=== PATIENT | female | born 1945 | race Caucasian/White ===

== ENCOUNTER 2018-08-27 09:10 | Emergency (ER) | payer MEDICARE, OTHER ==
[2018-08-27] MEDS ORDERED: Sodium Chloride 0.9% 1,000 ML IV ONE ×2 (09:13→11:44)
[2018-08-27] MEDS ORDERED: Sodium Chloride 0.9% 10 ML Syringe FLUSH PRN (09:13)
[2018-08-27] MEDS ORDERED: Ondansetron 4 MG/2 ML SDV IVPUSH ONE (09:13)
--- NOTE | 2018-08-27 09:15 | EDM.PDOC ---
<OrlinmahsaShan quevedo - Last Filed: 08/27/18 10:28> ED HPI GENERAL MEDICAL PROBLEM - General Chief Complaint: Gastrointestinal Problem Stated Complaint: VOMITING Time Seen by Provider: 08/27/18 09:15 Source of Information: Reports: Patient History Limitations: Reports: No Limitations - History of Present Illness INITIAL COMMENTS - FREE TEXT/NARRATIVE: 73 YO WF presents to ER complaining of nausea/vomiting and dizziness which began this am. Pt reports she woke around 5am and had a large bowel movement. Pt went back to bed and a few hours later she woke feeling nauseated and vomited. Pt reports she also had another large bowel movement followed by black emesis. Pt felt diaphoretic and dizzy prompting ER visit. 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 Pt reports she takes prednisone 5mg PO QD for her rheumatoid and has started taking (2) ASA 325mg PO QD for her arthritic pain. Pt denies abdominal pain and is currently without nausea. Pt states she feels dizzy with standing. Pt denies chest pain, shortness of breath, hemoptysis, or cough. Pt denies fever/chills. Onset: Today Onset Date: 08/27/18 Onset Time: 05:00 Duration: Improving, Waxing/Waning Location: Reports: Abdomen, Generalized Severity: Moderate Improves with: Reports: Rest Worsens with: Reports: Movement Associated Symptoms: Reports: Diaphoresis, Loss of Appetite, Malaise, Nausea/ Vomiting. Denies: Confusion, Chest Pain, Cough, cough w sputum, Fever/Chills, Headaches, Rash, Seizure, Shortness of Breath, Syncope - Related Data Allergies Allergy/AdvReac Type Severity Reaction Status Date / Time enoxaparin [From Lovenox] Allergy Hives Verified 08/27/18 10:47 Stqhjpk-Yqh-Gkw Reductase Allergy Other Verified 08/27/18 10:47 Inhibitor Seasonal Allergies Allergy Other Uncoded 08/27/18 10:47 Home Meds: Home Meds Albuterol [Proventil HFA] 2 puff INH Q4H PRN 01/16/18 [History] Albuterol [Proventil Neb Soln] 2.5 mg INH QID PRN 01/16/18 [History] Aspirin 325 mg PO DAILY 01/16/18 [History] Cetirizine [ZyrTEC] 10 mg PO DAILY 01/16/18 [History] Cyanocobalamin (Vitamin B-12) [B-12] 500 mcg PO Q48H 01/16/18 [History] Etanercept [Enbrel] 50 mg SQ WEEKLY 01/16/18 [History] Ezetimibe 10 mg PO DAILY 01/16/18 [History] Fluticasone/Salmeterol [Advair 250-50] 1 puff INH BID 01/16/18 [History] Folic Acid 1 mg PO DAILY 01/16/18 [History] Methotrexate 17.5 mg PO Q7D 01/16/18 [History] Metoprolol Succinate [Toprol XL] 25 mg PO DAILY 01/16/18 [History] Montelukast [Singulair] 10 mg PO DAILY 01/16/18 [History] Multivitamin [Daily Multiple Vitamin] 1 tab PO DAILY 01/16/18 [History] Nystatin [Nystatin Ointment] 1 applic TOP BID PRN 01/16/18 [History] [place]-3/DHA/Epa/Fish Oil [[place]-3 Fish Oil 1,000 MG Sfgl] 1,000 mg PO DAILY [History] Omeprazole 20 mg PO DAILY 01/16/18 [History] diphenhydrAMINE [Benadryl] 50 mg PO BEDTIME PRN 01/16/18 [History] predniSONE [Prednisone] 5 mg PO DAILY 01/16/18 [History] predniSONE [Prednisone] 10 mg PO DAILY PRN 01/16/18 [History] traMADol [Ultram] 50 mg PO BID PRN 01/16/18 [History] Acetaminophen/Diphenhydramine [Tylenol Pm Ex-Strength Caplet] 2 each PO BEDTIME PRN 08/27/18 [History] Cephalexin [Keflex] 250 mg PO DAILY 08/27/18 [History] Fluconazole [Diflucan] 150 mg PO DAILY 08/27/18 [History] Fluticasone Propionate [Flonase] 1 spray NS DAILY 08/27/18 [History] Past Medical History HEENT History: Reports: Cataract, Impaired Vision Cardiovascular History: Reports: High Cholesterol, Hypertension, SOB on Exertion Respiratory History: Reports: Asthma Gastrointestinal History: Reports: GERD, Hiatal Hernia Genitourinary History: Reports: Renal Calculus [employer]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 , Musculoskeletal History: Reports: Back Pain, Chronic, Osteoarthritis, RA Neurological History: Reports: Headaches, Chronic Hematologic History: Reports: Blood Transfusion(s) - Infectious Disease History Infectious Disease History: Reports: Chicken Pox, Measles, Shingles - Past Surgical History HEENT Surgical History: Reports: Cataract Surgery Cardiovascular Surgical History: Reports: None Respiratory Surgical History: Reports: None GI Surgical History: Reports: Appendectomy, Colonoscopy, EGD Female Surgical History: Reports: Cystoscopy, Hysterectomy, Lithotripsy/ESWL Neurological Surgical History: Reports: None Musculoskeletal Surgical History: Reports: Arthroscopic Knee, Knee Replacement Social & Family History - Caffeine Use Caffeine Use: Reports: Coffee, Soda, Tea ED ROS GENERAL - Review of Systems Review Of Systems: See Below Constitutional: Reports: Malaise, Weakness, Decreased Appetite, Weight Loss HEENT: Reports: No Symptoms Respiratory: Reports: No Symptoms Cardiovascular: Reports: No Symptoms Endocrine: Reports: No Symptoms GI/Abdominal: Reports: Black Stool, Diarrhea, Nausea, Vomiting. Denies: Abdominal Pain : Reports: No Symptoms Musculoskeletal: Reports: No Symptoms Skin: Reports: No Symptoms Neurological: Reports: Dizziness Psychiatric: Reports: No Symptoms Hematologic/Lymphatic: Reports: No Symptoms Immunologic: Reports: No Symptoms ED EXAM, GI/ABD - Physical Exam Exam: See Below Exam Limited By: No Limitations General Appearance: Alert, WD/WN, No Apparent Distress Eyes: Bilateral: EOMI Throat/Mouth: Normal Inspection, Normal Lips, Normal Teeth, Normal Gums, Normal Oropharynx, Normal Voice, No Airway Compromise Head: Atraumatic, Normocephalic Neck: Normal Inspection, Supple, Non-Tender, Full Range of Motion Respiratory/Chest: No Respiratory Distress, Lungs Clear, Normal Breath Sounds, No Accessory Muscle Use, Chest Non-Tender Cardiovascular: Normal Peripheral Pulses, Regular Rate, Rhythm, No Edema, No Gallop, No JVD, No Murmur, No Rub GI/Abdominal Exam: Normal Bowel Sounds, Soft, Non-Tender, No Organomegaly, No Distention, No Abnormal Bruit, No Mass, Pelvis Stable Rectal (Female) Exam: Normal Exam, Normal Rectal Tone, Heme + Stool Back Exam: Normal Inspection, Full Range of Motion, NT Extremities: Normal Inspection, Normal Range of Motion, Non-Tender, Normal Capillary Refill, No Pedal Edema Neurological: Alert, Oriented, CN II-XII Intact, Normal Cognition, Normal Gait, Normal Reflexes, No Motor/Sensory Deficits Psychiatric: Normal Affect, Normal Mood Skin Exam: Warm, Dry, Intact, Normal Color, No Rash Lymphatic: No Adenopathy EKG INTERPRETATION EKG Date: 08/27/18 Time: 09:40 Rhythm: NSR Rate (Beats/Min): 72 [place]: Normal P-Wave: Present QRS: Normal ST-T: Normal QT: Normal Comparison: NA - No Prior EKG Course - Orders/Labs/Meds Orders: Active Orders 24 hr Category Date Time Status EKG Documentation Completion [RC] ASDIRECTED Care 08/27/18 09:14 Active Peripheral IV Care [RC] . DIRECTED Care 08/27/18 09:14 Active TYPE AND SCREEN [BBK] Stat Lab 08/27/18 09:55 Received Sodium Chloride 0.9% [Saline Flush] Med 08/27/18 09:13 Active 10 ml FLUSH Q8HR PRN Peripheral IV Insertion Adult [OM.PC] Routine Oth 08/27/18 09:13 Ordered EKG 12 Lead [EK] Routine Ther 08/27/18 09:14 Ordered Medication Orders Sodium Chloride (Saline Flush) 10 ml FLUSH Q8HR PRN PRN Reason: keep vein open Labs: Laboratory Tests 08/27/18 08/27/18 Range/Units 09:55 09:55 WBC 11.09 H (5.00-10.00) 10^3/uL RBC 3.13 L (3.80-5.50) 10^6/uL Hgb 9.7 L (12.0-16.0) g/dL Hct 30.3 L (37.0-47.0) % MCV 96.8 H (82.0-92.0) fL MCH 31.0 (27.0-31.0) pg MCHC 32.0 (32.0-36.0) g/dL RDW 15.7 H (11.5-14.5) % Plt Count 295 (150-400) 10^3/uL MPV 9.8 (7.4-10.4) fL Immature Gran % (Auto) 0.3 (0.0-5.0) % Neut % (Auto) 52.2 (50.0-70.0) % Lymph % (Auto) 31.6 (20.0-40.0) % [place] % (Auto) 13.2 H (2.0-8.0) % Eos % (Auto) 2.3 (1.0-3.0) % Baso % (Auto) 0.4 (0.0-1.0) % Immature Gran # (Auto) 0.03 (0.00-0.50) 10^3/uL Neut # (Auto) 5.80 (2.50-7.00) 10^3/uL Lymph # (Auto) 3.50 (1.00-4.00) 10^3/uL [place] # (Auto) 1.46 H (0.10-0.80) 10^3/uL Eos # (Auto) 0.26 (0.10-0.30) 10^3/uL Baso # (Auto) 0.04 (0.00-0.10) 10^3/uL Sodium 145 (136-145) mmol/L Potassium 3.9 (3.3-5.3) mmol/L Chloride 110 (98-115) mmol/L Carbon Dioxide 25.6 (21.0-32.0) mmol/L Anion Gap 13.3 (5-15) mmol/L BUN 44 H (6-25) mg/dL Creatinine 0.96 (0.51-1.17) mg/dL Est Cr Clr Drug Dosing TNP Estimated GFR (MDRD) 57 mL/min Glucose 106 H (75 - 99) mg/dL Calcium 8.2 L (8.7-10.3) mg/dL Total Bilirubin 0.2 (0.2-1.0) mg/dL AST 23 (15-37) U/L ALT 34 (12-78) U/L Alkaline Phosphatase 34 L (46-116) IU/L Total Protein 5.6 L (6.4-8.2) g/dL Albumin 2.77 L (3.00-4.80) g/dL Lipase 133 (73-393) U/L Meds: Medications Generic Name Dose Route Start Last Admin Trade Name Freq PRN Reason Stop Dose Admin Sodium Chloride 10 ml 08/27/18 09:13 Saline Flush FLUSH Q8HR PRN keep vein open Discontinued Medications Generic Name Dose Route Start Last Admin Trade Name Freq PRN Reason Stop Dose Admin Sodium Chloride 1,000 mls @ 999 mls/hr 08/27/18 09:13 Normal Saline IV 08/27/18 10:13 .BOLUS ONE Ondansetron HCl 4 mg 08/27/18 09:13 Zofran IVPUSH 08/27/18 09:14 ONETIME ONE - Radiology Interpretation Free Text/Narrative:: CXR- NAD Departure - Departure Disposition: DC/Tfer to Acute Hospital 02 Clinical Impression: Acute GI bleeding - Discharge Information Referrals: Oz Dunaway MD [Primary Care Provider] - Forms: ED Department Discharge <Mendez Castro - Last Filed: 08/27/18 14:03> Course - Re-Assessments/Exams Free Text/Narrative Re-Assessment/Exam: 08/27/18 11:37 I took over patient care from Shan after discussing her case. I reviewed details with the patient; she says for the past 4 days she had mildly darker stools but she had been eating lots of dark cherries and some black licorice so she thought it was due to that until this morning when she had black tarry stools twice and black emesis. Her Hg is 9.7 and I discussed with Dr. Beverley Alvarado who is in-house for rounds. We compared past labs and patient has never been anemic before with last Hg about 14.5 two weeks ago. She says an emergent endoscopy isn't available here now and advises calling [facility]. 08/27/18 11:57 Hemoccult is positive from stool specimen. 08/27/18 12:20 Hospitalist at [facility] in [place] accepted for transfer and we will wait for their call with room. 08/27/18 14:02 They called with room in [facility] and patient is stable at transfer. Departure - Departure Time of Disposition: 14:02 Condition: Good
--- NOTE | 2018-08-27 09:59 | CR ---
[id number] RAD/RAD Chest PA And Lateral EXAM: RAD Chest PA And Lateral INDICATION: VOMITING. COMPARISON: CT from 2010 DISCUSSION: Cardiomediastinal silhouette is normal in size and contour. No infiltrate, effusion, pneumothorax, or edema. Large hiatus hernia. IMPRESSION: No acute cardiopulmonary findings. Large hiatus hernia. Zhao Zuniga MD 08/27/18 [id number] Thank you for allowing us to participate in the care of your patient.
[2018-08-27 10:33] LABS: ANION GAP 13.3 mmol/L (5-15); CHLORIDE,CL 110 mmol/L (98-115); SODIUM,NA 145 mmol/L (136-145)
[2018-08-27] MEDS ORDERED: Nitroglycerin 0.4 MG Tab.SL SL PRN (12:15)
== END 2018-08-27 14:15 ==
LOC: KA.ED 09:10
DX: K92.2 Gastrointestinal hemorrhage, unspecified (principal); I10 Essential (primary) hypertension; E78.00 Pure hypercholesterolemia, unspecified; J45.909 Unspecified asthma, uncomplicated; K21.9 Gastro-esophageal reflux disease without esophagitis; Z79.82 Long term (current) use of aspirin; Z79.899 Other long term (current) drug therapy; Z88.8 Allergy status to other drugs, medicaments and biological substances; Z91.09 Other allergy status, other than to drugs and biological substances
CPT/HCPCS: 36415; 71046; 80053; 81001; 82272; 83690; 85025; 86850; 86900; 86901; 87086; 93005; 96361; 96374; 99285; J2405; J7030; 99284

== ENCOUNTER 2020-09-11 13:56 | Inpatient (IN) | payer MEDICARE, OTHER ==
[2020-09-11] MEDS ORDERED: Sodium Chloride 0.9% 1,000 ML IV ONE (15:54)
--- NOTE | 2020-09-11 15:58 | EDM.PDOC ---
ED HPI GENERAL MEDICAL PROBLEM - General Chief Complaint: General Stated Complaint: DIZZINESS Time Seen by Provider: 09/11/20 14:32 Source of Information: Reports: Patient, Family (dtr) History Limitations: Reports: No Limitations - History of Present Illness INITIAL COMMENTS - FREE TEXT/NARRATIVE: Patient presents with two falls and several near-falls, recently. She says they happen when she stands up and begins walking. The first time was about a month ago after her back surgery and hospitalization at [facility]; she says the cage/hardware from the surgery shifted from the fall at that time. The second fall was 2 days ago and she wonders if it moved again. She also hit her right hip against a cupboard on the way down and has some pain and bruising at the lateral hip but not anterior. She has had low blood pressure recently and has had all of antihypertensives stopped 2.5 weeks ago. She drinks at least 40 oz of water, as well as some juice, coffee and soda most days. She denies any diarrhea or vomiting. Lower Back Pain Score (Numeric/FACES): 8 - Related Data Allergies Allergy/AdvReac Type Severity Reaction Status Date / Time enoxaparin [From Lovenox] Allergy Hives Verified 09/11/20 14:08 NSAIDS (Non-Steroidal Allergy Other Verified 09/11/20 14:08 Anti-Inflamma Rhctvnz-Dbp-Dcm Reductase Allergy Other Verified 09/11/20 14:08 Inhibitor Seasonal Allergies Allergy Other Uncoded 09/11/20 14:08 Home Meds: Home Meds Albuterol [Proventil HFA] 2 puff INH Q4H PRN 01/16/18 [History] Cetirizine [ZyrTEC] 10 mg PO DAILY 01/16/18 [History] Fluticasone/Salmeterol [Advair 250-50] 1 puff INH BID 01/16/18 [History] Montelukast [Singulair] 10 mg PO DAILY 01/16/18 [History] Nystatin [Nystatin Ointment] 1 applic TOP BID PRN 01/16/18 [History] Omeprazole 20 mg PO DAILY 01/16/18 [History] Fluticasone Propionate [Flonase] 1 spray NS DAILY PRN 08/27/18 [History] Acyclovir [Zovirax] 800 mg PO TID PRN 10/21/19 [History] Alum Hydroxide/Mag Carbonate [Gaviscon] 15 ml PO DAILY PRN 10/21/19 [History] Cyclobenzaprine [Flexeril] 5 mg PO TID PRN 10/21/19 [History] Rivaroxaban [Xarelto] 20 mg PO DAILY 10/21/19 [History] DULoxetine HCl [Cymbalta] 60 mg PO DAILY 05/24/20 [History] Pramipexole [Mirapex] 0.25 mg PO BEDTIME 05/24/20 [History] Acetaminophen [Tylenol] 650 mg PO Q6H PRN 09/11/20 [History] Acetaminophen/Diphenhydramine [Tylenol Pm Ex-Strength Caplet] 2 tab PO BEDTIME PRN 09/11/20 [History] Docusate Sodium 100 mg PO BEDTIME 09/11/20 [History] Gabapentin [Neurontin] 300 mg PO TID 09/11/20 [History] Hydrocodone/Acetaminophen [HYDROcodone-Acetaminophen 5-325 MG] 1 - 2 tab PO Q6H PRN 09/11/20 [History] oxyCODONE 5 mg PO Q6H PRN 09/11/20 [History] Past Medical History HEENT History: Reports: Cataract, Impaired Vision Cardiovascular History: Reports: Blood Clots/VTE/DVT, High Cholesterol, Hypertension, SOB on Exertion Respiratory History: Reports: Asthma, PE Gastrointestinal History: Reports: GERD, Hiatal Hernia Genitourinary History: Reports: Renal Calculus [employer]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 , Musculoskeletal History: Reports: Back Pain, Chronic, Osteoarthritis, Osteoporosis, RA Neurological History: Reports: Headaches, Chronic Endocrine/Metabolic History: Reports: Osteoporosis Hematologic History: Reports: Blood Transfusion(s) Immunologic History: Reports: Immunosuppression - Infectious Disease History Infectious Disease History: Reports: Chicken Pox, Measles, Shingles - Past Surgical History HEENT Surgical History: Reports: Cataract Surgery Cardiovascular Surgical History: Reports: None Respiratory Surgical History: Reports: None GI Surgical History: Reports: Appendectomy, Colonoscopy, EGD Female Surgical History: Reports: Cystoscopy, Hysterectomy, Lithotripsy/ESWL Neurological Surgical History: Reports: None Musculoskeletal Surgical History: Reports: Arthroscopic Knee, Knee Replacement Social & Family History - Family History Family Medical History: No Pertinent Family History - Caffeine Use Caffeine Use: Reports: Coffee ED ROS GENERAL - Review of Systems Review Of Systems: See Below Constitutional: Denies: Fever, Chills, Malaise, Weakness HEENT: Denies: Ear Pain, Throat Pain, Vision Change Respiratory: Denies: Shortness of Breath, Cough Cardiovascular: Reports: Blood Pressure Problem, Lightheadedness, Syncope. Denies: Chest Pain GI/Abdominal: Reports: Constipation. Denies: Abdominal Pain, Diarrhea, Nausea, Vomiting : Denies: Dysuria (was recently treated for UTI and has kidney stones) Musculoskeletal: Reports: Back Pain. Denies: Neck Pain, Shoulder Pain, Arm Pain, Leg Pain (except lateral R hip), Foot Pain Skin: Denies: Cyanosis, Jaundice, Mottled, Pallor, Diaphoresis Neurological: Reports: Syncope. Denies: Confusion, Headache, Numbness, Seizure, Trouble Speaking Psychiatric: Denies: Agitation, Anxiety, Confusion ED EXAM, GENERAL - Physical Exam Exam: See Below Exam Limited By: No Limitations General Appearance: Alert, WD/WN, No Apparent Distress Eye Exam: Bilateral Eye: EOMI, Normal Inspection, PERRL Ears: Normal External Exam, Hearing Grossly Normal Nose: Normal Inspection, No Blood Throat/Mouth: Normal Inspection, Normal Lips, Normal Voice, No Airway Compromise Head: Atraumatic, Normocephalic Neck: Normal Inspection, Full Range of Motion Respiratory/Chest: No Respiratory Distress, Lungs Clear, Normal Breath Sounds Cardiovascular: Regular Rate, Rhythm, No Murmur GI/Abdominal: Soft, Non-Tender, No Organomegaly, No Distention Back Exam: Other (There are recent, nicely healing surgical incisions on either side of lumbar spine.). No: Paraspinal Tenderness, Vertebral Tenderness Extremities: Normal Inspection, Normal Range of Motion, Non-Tender, No Pedal Edema Neurological: Alert, Oriented, Normal Cognition, No Motor/Sensory Deficits Psychiatric: Normal Affect, Normal Mood Skin Exam: Warm, Dry, Intact, Normal Color, No Rash Course - Vital Signs Last Recorded V/S: Last Vital Signs Temp 97.2 F 09/11/20 14:08 Pulse 83 09/11/20 14:08 Resp 18 09/11/20 14:08 BP 147/89 H 09/11/20 14:08 Pulse Ox 98 09/11/20 14:08 - Re-Assessments/Exams Free Text/Narrative Re-Assessment/Exam: 09/11/20 16:10 Orthostatic pressures show a significant drop with sitting and standing. I discussed findings with Dr. Madden who accepts for admission for monitor and workup. EKG shows NSR. 09/11/20 17:01 Labs and xray okay. Discussed findings and plan with patient. Stable at admission. Departure - Departure Time of Disposition: 16:58 Disposition: Admitted As Inpatient 66 Condition: Good Clinical Impression: Orthostatic hypotension, History of recent fall - Discharge Information Referrals: Isabella Sanchez MD [Primary Care Provider] - Sepsis Event Note (ED) - Evaluation Sepsis Screening Result: No Definite Risk - Focused Exam Vital Signs: Vital Signs Temp Pulse Resp BP Pulse Ox 09/11/20 14:08 97.2 F 83 18 147/89 H 98
--- NOTE | 2020-09-11 16:34 | CR ---
[id number] RAD/RAD Lumbar Spine 2-3V Exam: RAD Lumbar Spine 2-3V Indication:PAIN, FALL. Comparison: No prior imaging for comparison. Discussion/Impression: Extensive changes of hardware fusion at L3-S1. Hardware appears radiographically intact. No prior postoperative imaging available for comparison No evidence of an acute fracture or compression deformity. Zhao Zuniga MD 09/11/20 [id number] Thank you for allowing us to participate in the care of your patient.
[2020-09-11 16:53] LABS: ANION GAP 15.7 mmol/L (5-15)
[2020-09-11] MEDS ORDERED: Albuterol 8 GM Inhaler INH PRN (20:02)
[2020-09-11] MEDS ORDERED: Acyclovir 400 MG Tab PO PRN (20:02)
[2020-09-11] MEDS ORDERED: ALUMINUM HYDROXIDE PO PRN (20:04)
[2020-09-11] MEDS ORDERED: MAGNESIUM CARBONATE PO PRN (20:04)
[2020-09-11] MEDS ORDERED: Nystatin Ointment 15 GM Tube TOP PRN (20:08)
[2020-09-11] MEDS ORDERED: Acetaminophen/HYDROcodone 325-5 MG Tab PO PRN (20:12)
[2020-09-11] MEDS ORDERED: oxyCODONE 5 MG Tab PO PRN (20:58)
[2020-09-11] MEDS ORDERED: Fluticasone Propionate Nasal Spray 16 GM Bottle NASBOTH SCH (21:00)
[2020-09-11] MEDS ORDERED: Formoterol/Mometasone 200-5 MCG 8.8 GM Inhaler IH SCH (21:00)
[2020-09-11] MEDS: Pramipexole 0.125 MG Tab PO SCH (21:38)
[2020-09-11] MEDS: Docusate Sodium 100 MG Cap PO SCH (21:39)
[2020-09-11] MEDS: Gabapentin 300 MG Cap PO SCH (21:39)
[2020-09-11] MEDS: Melatonin 3 MG Tab PO PRN (21:39)
[2020-09-11] MEDS: Cyclobenzaprine 10 MG Tab PO PRN (21:46)
[2020-09-11] MEDS: Acetaminophen 325 MG Tab PO PRN (21:47)
[2020-09-11] MEDS ORDERED: Albuterol 8 GM Inhaler **OWN MED INH PRN (22:10)
[2020-09-11] MEDS: ADVAIR INH SCH (22:35)
[2020-09-11] MEDS: Fluticasone Propionate Nasal Spray 16 GM Bottle **OWN MED NASBOTH SCH (22:36)
[2020-09-12] MEDS: Omeprazole 20 MG Cap.CR PO SCH ×2 (06:13→06:32)
[2020-09-12] MEDS: Gabapentin 300 MG Cap PO SCH ×3 (08:51→20:03)
[2020-09-12] MEDS: DULoxetine 30 MG Cap PO SCH (08:51)
[2020-09-12] MEDS: Montelukast 10 MG Tab PO SCH (08:51)
[2020-09-12] MEDS: Rivaroxaban 10 MG Tab PO SCH (08:51)
[2020-09-12] MEDS: Cetirizine 10 MG Tab PO SCH (08:53)
[2020-09-12] MEDS: ADVAIR INH SCH ×2 (08:57→20:05)
--- NOTE | 2020-09-12 10:42 | PCM.HP.2 ---
H&P History of Present Illness - General Date of Service: 09/12/20 Admit Problem/Dx: Admission Diagnosis/Problem Admission Diagnosis/Problem Orthostatic hypotension Lower Back Pain Score (Numeric/FACES): 0 - Related Data Allergies/Adverse Reactions: Allergies Allergy/AdvReac Type Severity Reaction Status Date / Time enoxaparin [From Lovenox] Allergy Hives Verified 09/11/20 14:08 NSAIDS (Non-Steroidal Allergy Other Verified 09/11/20 14:08 Anti-Inflamma Kzziabz-Ltk-Hhw Reductase Allergy Other Verified 09/11/20 14:08 Inhibitor Seasonal Allergies Allergy Other Uncoded 09/11/20 14:08 Home Medications: Home Meds Albuterol [Proventil HFA] 2 puff INH Q4H PRN 01/16/18 [History] Cetirizine [ZyrTEC] 10 mg PO DAILY 01/16/18 [History] Fluticasone/Salmeterol [Advair 250-50] 1 puff INH BID 01/16/18 [History] Montelukast [Singulair] 10 mg PO DAILY 01/16/18 [History] Nystatin [Nystatin Ointment] 1 applic TOP BID PRN 01/16/18 [History] Omeprazole 20 mg PO ACBREAKFAST 01/16/18 [History] Fluticasone Propionate [Flonase] 1 spray NS BEDTIME 08/27/18 [History] Acyclovir [Zovirax] 800 mg PO TID PRN 10/21/19 [History] Alum Hydroxide/Mag Carbonate [Gaviscon] 15 ml PO DAILY PRN 10/21/19 [History] Cyclobenzaprine [Flexeril] 5 mg PO TID PRN 10/21/19 [History] Rivaroxaban [Xarelto] 20 mg PO DAILY 10/21/19 [History] DULoxetine HCl [Cymbalta] 60 mg PO DAILY 05/24/20 [History] Pramipexole [Mirapex] 0.25 mg PO BEDTIME 05/24/20 [History] Acetaminophen [Tylenol] 650 mg PO Q6H PRN 09/11/20 [History] Acetaminophen/Diphenhydramine [Tylenol Pm Ex-Strength Caplet] 2 tab PO BEDTIME PRN 09/11/20 [History] Docusate Sodium 100 mg PO BEDTIME 09/11/20 [History] Gabapentin [Neurontin] 300 mg PO TID 09/11/20 [History] Hydrocodone/Acetaminophen [HYDROcodone-Acetaminophen 5-325 MG] 1 - 2 tab PO Q6H PRN 09/11/20 [History] oxyCODONE 5 mg PO Q6H PRN 09/11/20 [History] Midodrine 10 mg PO BID #60 tablet 09/14/20 [Rx] Past Medical History HEENT History: Reports: Cataract, Impaired Vision Cardiovascular History: Reports: Blood Clots/VTE/DVT, Hypertension, SOB on Exertion Respiratory History: Reports: Asthma, PE Gastrointestinal History: Reports: GERD, Hiatal Hernia Genitourinary History: Reports: Renal Calculus HEALTH PSYCHOLOGIST History: Reports: Ectopic , Musculoskeletal History: Reports: Back Pain, Chronic, Osteoarthritis, Osteoporosis, RA Neurological History: Reports: Headaches, Chronic Endocrine/Metabolic History: Reports: Hypoparathyroidism, Osteoporosis Hematologic History: Reports: Blood Transfusion(s) Immunologic History: Reports: Immunosuppression - Infectious Disease History Infectious Disease History: Reports: Chicken Pox, Measles, Novel Coronavirus, Shingles - Past Surgical History Head Surgeries/Procedures: Reports: None HEENT Surgical History: Reports: Cataract Surgery Cardiovascular Surgical History: Reports: None Respiratory Surgical History: Reports: None GI Surgical History: Reports: Appendectomy, Colonoscopy, EGD Female Surgical History: Reports: Cystoscopy, Hysterectomy, Lithotripsy/ESWL Endocrine Surgical History: Reports: Parathyroidectomy Neurological Surgical History: Reports: None Musculoskeletal Surgical History: Reports: Arthroscopic Knee, Knee Replacement Dermatological Surgical History: Reports: None Social & Family History - Family History Family Medical History: No Pertinent Family History - Tobacco Use Tobacco Use Status *Q: Never Tobacco User - Caffeine Use Caffeine Use: Reports: Coffee, Soda - Recreational Drug Use Recreational Drug Use: No H&P Review of Systems - Review of Systems: Review Of Systems: See Below General: Reports: Decreased Appetite (states related to hiatal hernia) HEENT: Reports: Other (dry eyes due to RA) Pulmonary: Reports: No Symptoms Cardiovascular: Reports: Lightheadedness. Denies: Chest Pain, Palpitations, Edema Gastrointestinal: Reports: Decreased Appetite Genitourinary: Reports: No Symptoms Musculoskeletal: Reports: Other (generalized RA pain) Skin: Reports: No Symptoms Psychiatric: Reports: No Symptoms Neurological: Reports: No Symptoms Hematologic/Lymphatic: Reports: Easy Bleeding, Easy Bruising (on xarelto) Immunologic: Reports: No Symptoms Exam - Exam Exam: See Below - Vital Signs Vital Signs: Last Vital Signs Temp 98.8 F 09/12/20 06:35 Pulse 73 09/12/20 06:35 Resp 16 09/12/20 06:35 BP 145/63 H 09/12/20 06:35 Pulse Ox 94 L 09/12/20 06:35 Orthostatic Blood Pressure [ 88/50 Standing] Orthostatic Blood Pressure [ 126/70 Sitting] Orthostatic Blood Pressure [ 141/76 Supine] Weight: 139 lb 8 oz - Exam Quality Assessment: No: Supplemental Oxygen General: Alert, Oriented, Cooperative HEENT: Conjunctiva Clear, EACs Clear, Mucosa Moist & [place] Neck: Supple, Trachea Midline. No: Carotid Bruit Lungs: Clear to Auscultation, Normal Respiratory Effort. No: Crackles, Rales, Wheezing Cardiovascular: Regular Rate, Regular Rhythm GI/Abdominal Exam: Normal Bowel Sounds, Soft, Non-Tender, No Distention (Female) Exam: Deferred Rectal (Female) Exam: Deferred Back Exam: Normal Inspection Extremities: Normal Inspection, Normal Range of Motion, Non-Tender, No Pedal Edema, Normal Capillary Refill Peripheral Pulses: 2+: Dorsalis Pedis (L), Dorsalis Pedis (R) Skin: Warm, Dry, Intact Neurological: Normal Speech Neuro Extensive - Mental Status: Alert, Oriented x3, Normal Mood/Affect, Normal Cognition, Memory Intact Psychiatric: Alert, Normal Affect, Normal Mood - Patient Data Lab Results Last 24 hrs: Laboratory Results - last 24 hr 09/11/20 09/11/20 09/11/20 Range/Units 16:26 16:26 16:30 WBC 9.84 (5.00-10.00) 10^3/uL RBC 4.09 (3.80-5.50) 10^6/uL Hgb 11.0 L (12.0-16.0) g/dL Hct 35.9 L (37.0-47.0) % MCV 87.8 D (82.0-92.0) fL MCH 26.9 L (27.0-31.0) pg MCHC 30.6 L (32.0-36.0) g/dL RDW 14.4 (11.5-14.5) % Plt Count 416 H D (150-400) 10^3/uL MPV 9.1 (7.4-10.4) fL Immature Gran % (Auto) 0.2 (0.0-5.0) % Neut % (Auto) 72.0 H (50.0-70.0) % Lymph % (Auto) 16.1 L (20.0-40.0) % [place] % (Auto) 9.3 H (2.0-8.0) % Eos % (Auto) 2.1 (1.0-3.0) % Baso % (Auto) 0.3 (0.0-1.0) % Neut # (Auto) 7.08 H (2.50-7.00) 10^3/uL Lymph # (Auto) 1.58 (1.00-4.00) 10^3/uL [place] # (Auto) 0.92 H (0.10-0.80) 10^3/uL Eos # (Auto) 0.21 (0.10-0.30) 10^3/uL Baso # (Auto) 0.03 (0.00-0.10) 10^3/uL Immature Gran # (Auto) 0.02 (0.00-0.50) 10^3/uL Sodium 137 (136-145) mmol/L Potassium 3.9 (3.5-5.1) mmol/L Chloride 101 (98-107) mmol/L Carbon Dioxide 24.2 (21.0-32.0) mmol/L Anion Gap 15.7 H (5-15) mmol/L BUN 18 (7-18) mg/dL Creatinine 0.92 (0.51-1.17) mg/dL Est Cr Clr Drug Dosing 39.87 mL/min Estimated GFR (MDRD) 60 mL/min Glucose 97 (70-140) mg/dL Calcium 8.2 L (8.7-10.3) mg/dL Total Bilirubin 0.2 (0.2-1.0) mg/dL AST 22 (15-37) U/L ALT 16 (14-63) U/L Alkaline Phosphatase 130 H (46-116) U/L Total Protein 6.2 L (6.4-8.2) g/dL Albumin 2.18 L (3.40-5.00) g/dL SARS CoV-2 RNA Rapid [place] Negative (NEGATIVE) 09/12/20 Range/Units 10:20 WBC 8.62 (5.00-10.00) 10^3/uL RBC 3.75 L (3.80-5.50) 10^6/uL Hgb 10.3 L (12.0-16.0) g/dL Hct 33.1 L (37.0-47.0) % MCV 88.3 (82.0-92.0) fL MCH 27.5 (27.0-31.0) pg MCHC 31.1 L (32.0-36.0) g/dL RDW 14.6 H (11.5-14.5) % Plt Count 387 (150-400) 10^3/uL MPV 9.2 (7.4-10.4) fL Immature Gran % (Auto) (0.0-5.0) % Neut % (Auto) (50.0-70.0) % Lymph % (Auto) (20.0-40.0) % [place] % (Auto) (2.0-8.0) % Eos % (Auto) (1.0-3.0) % Baso % (Auto) (0.0-1.0) % Neut # (Auto) (2.50-7.00) 10^3/uL Lymph # (Auto) (1.00-4.00) 10^3/uL [place] # (Auto) (0.10-0.80) 10^3/uL Eos # (Auto) (0.10-0.30) 10^3/uL Baso # (Auto) (0.00-0.10) 10^3/uL Immature Gran # (Auto) (0.00-0.50) 10^3/uL Sodium (136-145) mmol/L Potassium (3.5-5.1) mmol/L Chloride (98-107) mmol/L Carbon Dioxide (21.0-32.0) mmol/L Anion Gap (5-15) mmol/L BUN (7-18) mg/dL Creatinine (0.51-1.17) mg/dL Est Cr Clr Drug Dosing mL/min Estimated GFR (MDRD) mL/min Glucose (70-140) mg/dL Calcium (8.7-10.3) mg/dL Total Bilirubin (0.2-1.0) mg/dL AST (15-37) U/L ALT (14-63) U/L Alkaline Phosphatase (46-116) U/L Total Protein (6.4-8.2) g/dL Albumin (3.40-5.00) g/dL SARS CoV-2 RNA Rapid [place]INTER (NEGATIVE) Result Diagrams: 09/13/20 07:35 09/13/20 07:35 Sepsis Event Note - Evaluation Sepsis Screening Result: No Definite Risk - Focused Exam Vital Signs: Vital Signs Temp Pulse Resp BP Pulse Ox 09/12/20 06:35 98.8 F 73 16 145/63 H 94 L 09/12/20 02:11 97.8 F 80 16 150/65 H 97 Problem List Initiated/Reviewed/Updated: Yes Orders Last 24hrs: Active Orders 24 hr Category Date Time Status Patient Status [ADT] Routine ADT 09/11/20 17:00 Active EKG Documentation Completion [RC] ASDIRECTED Care 09/11/20 15:57 Active Orthostatic Vital Signs [RC] ASDIRECTED Care 09/12/20 09:24 Active 2 Gram Sodium Diet [DIET] Diet 09/12/20 Breakfast Active CMP [COMPREHENSIVE METABOLIC PN,CMP] [CHEM] Routine Lab 09/12/20 10:20 Received Acetaminophen [TylenoL] Med 09/11/20 20:01 Active 650 mg PO Q6H PRN Acyclovir [Zovirax] Med 09/11/20 20:02 Active 800 mg PO TID PRN Albuterol [Ventolin HFA] Med 09/11/20 22:10 Active 0 gm INH Q4H PRN Cetirizine [ZyrTEC] Med 09/12/20 09:00 Active 10 mg PO DAILY Cyclobenzaprine [Flexeril] Med 09/11/20 20:04 Active 5 mg PO TID PRN DULoxetine [Cymbalta] Med 09/12/20 09:00 Active 60 mg PO DAILY Docusate Sodium [Colace] Med 09/11/20 21:00 Active 100 mg PO BEDTIME Fluticasone Propionate [Flonase] Med 09/11/20 22:30 Active 0 gm NASBOTH BEDTIME Gabapentin [Neurontin] Med 09/11/20 21:00 Active 300 mg PO TID Melatonin Med 09/11/20 21:18 Active 3 mg PO BEDTIME PRN Montelukast [Singulair] Med 09/12/20 09:00 Active 10 mg PO DAILY Non-Formulary Medication [NF Drug] Med 09/11/20 22:30 Active 0 each INH BID Nystatin [Nystatin Ointment] Med 09/11/20 20:08 Active 0 gm TOP BID PRN Omeprazole Med 09/12/20 07:30 Active 20 mg PO ACBREAKFAST Pramipexole [Mirapex] Med 09/11/20 21:00 Active 0.25 mg PO BEDTIME Rivaroxaban [Xarelto] Med 09/12/20 09:00 Active 20 mg PO DAILY oxyCODONE Med 09/11/20 20:58 Active 5 mg PO Q6H PRN Code Status [Resuscitation Status] Routine Resus Stat 09/11/20 21:05 Ordered EKG 12 Lead [EK] Stat Ther 09/11/20 15:57 Ordered Medication Orders Acetaminophen (Acetaminophen 325 Mg Tab) 650 mg PO Q6H PRN PRN Reason: Pain Last Admin: 09/11/20 21:47 Dose: 650 mg Documented by: ZAY Acyclovir (Acyclovir 400 Mg Tab) 800 mg PO TID PRN PRN Reason: Other Albuterol (Albuterol 8 Gm Inhaler Own Med) 0 gm INH Q4H PRN PRN Reason: Wheezing Cetirizine HCl (Cetirizine 10 Mg Tab) 10 mg PO DAILY [facility] Last Admin: 09/12/20 08:53 Dose: 10 mg Documented by: DELVIS Cyclobenzaprine HCl (Cyclobenzaprine 10 Mg Tab) 5 mg PO TID PRN PRN Reason: Muscle Spasm - Painful Last Admin: 09/11/20 21:46 Dose: 5 mg Documented by: ZAY Docusate Sodium (Docusate Sodium 100 Mg Cap) 100 mg PO BEDTIME [facility] Last Admin: 09/11/20 21:39 Dose: 100 mg Documented by: ZAY Duloxetine HCl (Duloxetine 30 Mg Cap) 60 mg PO DAILY [facility] Last Admin: 09/12/20 08:51 Dose: 60 mg Documented by: DELVIS Fluticasone Propionate (Fluticasone Propionate Nasal [place] 16 Gm Bottle Own Med) 0 gm NASBOTH BEDTIME [facility] Last Admin: 09/11/20 22:36 Dose: 1 spray Documented by: ZAY Gabapentin (Gabapentin 300 Mg Cap) 300 mg PO TID [facility] Last Admin: 09/12/20 08:51 Dose: 300 mg Documented by: Admin: 09/11/20 21:39 Dose: 300 mg Documented by: ZAY Melatonin (Melatonin 3 Mg Tab) 3 mg PO BEDTIME PRN PRN Reason: Insomnia Last Admin: 09/11/20 21:39 Dose: 3 mg Documented by: ZAY Montelukast Sodium (Montelukast 10 Mg Tab) 10 mg PO DAILY [facility] Last Admin: 09/12/20 08:51 Dose: 10 mg Documented by: DELVIS Advair 250-50 Mcg (Inhaler Own Med) 0 each INH BID [facility] Last Admin: 09/12/20 08:57 Dose: 1 each Documented by: Admin: 09/11/20 22:35 Dose: 1 each Documented by: ZAY Nystatin (Nystatin Ointment 15 Gm Tube) 0 gm TOP BID PRN PRN Reason: yeast Omeprazole (Omeprazole 20 Mg Cap.Cr) 20 mg PO ACBREAKFAST [facility] Last Admin: 09/12/20 06:32 Dose: Not Given Documented by: Admin: 09/12/20 06:13 Dose: 20 mg Documented by: ZAY Oxycodone HCl (Oxycodone 5 Mg Tab) 5 mg PO Q6H PRN PRN Reason: Pain Pramipexole Dihydrochloride (Pramipexole 0.125 Mg Tab) 0.25 mg PO BEDTIME [facility] Last Admin: 09/11/20 21:38 Dose: 0.25 mg Documented by: ZAY Rivaroxaban (Rivaroxaban 10 Mg Tab) 20 mg PO DAILY [facility] Last Admin: 09/12/20 08:51 Dose: 20 mg Documented by: DELVIS Assessment/Plan Comment:: HPI summary: Lucero is a 75y F patient who presented to the [facility] ER yesterday afternoon for complaints of dizziness. States she had never felt dizzy until her recent back surgery on 08/14/20. Since that time she has fallen twice and has had several episodes in which she caught herself, but felt as though she was going to fall. The most recent fall occurred two days ago. Patient has had low blood pressures recently with her blood pressure medications stopped about 2.5 weeks ago. She drinks 40 ounces of water daily as well as other fluids consisting of juice, coffee and soda. She reports decreased appetite and has to eat small amounts due to "feeling full" as she has a hiatal hernia which limits her intake. ED course: EKG obtained indicating NSR with left axis deviation. Patient had positive orthostatic vital signs with decrease in blood pressure from 133/72 supine to 98/33 when standing. 1L NS bolus was given in ER. X-ray of the lumbar spine was completed, no concern for fracture or dislocation; hardware intact to L3-S1. WBC normal 9.84, Hgb 11.0, Na 137, K 3.9, Alk Phos 130, protein 6.2, albumin 2.18. Hospital course: 09/12/20: Patient denies dizziness today. Orthostatic VS repeated and remains positive with BP 88/50 standing. Labs repeated and overall unremarkable. Encouraged protein intake due to hypoalbuminemia and recent lumbar surgery. Hospitalization problems and plan: # Orthostatic hypotension # Dizziness # Recent fall - Will trial midodrine 5mg PO BID per Dr Madden - Plan for carotid ultrasound and repeat Echocardiogram as outpatient per Dr Madden # Hypoalbuminemia - Protein supplementation Chronic, stable conditions: # Essential hypertension, stable - medications recently stopped due to hypotension. # Chronic persistent allergic asthma - Continue montelukast 10mg PO daily, zyrtec 10mg PO daily, advair BID; albuterol PRN. # Pulmonary nodules # Rheumatoid arthritis - biologics currently on hold due to recent lumbar surgery # Hiatal hernia # GERD - continue prilosec 20mg PO daily # Hepatic steatosis # Thrombophilia # Restless legs - continue mirapex 0.25mg daily HS # S/P lumbar fusion # Lumbar radiculopathy - continue gabapentin 300mg PO TID # Nephrolithiasis # Overweight Hospitalization details: # FEN: Oral fluids, electrolytes stable, 2gm NA diet # PPX: On xarelto # Code status: FULL CODE # Emergency contact: DaughterMitchel # Disposition: Will maintain inpatient status due to persistent orthostatic hy potension, trial of midodrine per Dr Madden. Discharge to be determined based on clinical course.
[2020-09-12 10:44] LABS: ANION GAP 14.2 mmol/L (5-15); CHLORIDE,CL 104 mmol/L (98-107); SODIUM,NA 140 mmol/L (136-145)
[2020-09-12] MEDS: Midodrine 5 MG Tab PO SCH ×2 (11:45→20:03)
[2020-09-12] MEDS: Docusate Sodium 100 MG Cap PO SCH (20:03)
[2020-09-12] MEDS: Pramipexole 0.125 MG Tab PO SCH (20:03)
[2020-09-12] MEDS: Fluticasone Propionate Nasal Spray 16 GM Bottle **OWN MED NASBOTH SCH (20:05)
[2020-09-12] MEDS ORDERED: Fluticasone Propionate Nasal Spray 16 GM Bottle **OWN MED NASBOTH SCH (21:00)
[2020-09-12] MEDS: Melatonin 3 MG Tab PO PRN (22:03)
[2020-09-12] MEDS: Cyclobenzaprine 10 MG Tab PO PRN (22:03)
[2020-09-13] MEDS: Omeprazole 20 MG Cap.CR PO SCH ×2 (06:09→06:34)
[2020-09-13] MEDS: Cyclobenzaprine 10 MG Tab PO PRN ×2 (08:07→19:36)
[2020-09-13 08:08] LABS: ANION GAP 13.1 mmol/L (5-15); CHLORIDE,CL 105 mmol/L (98-107); SODIUM,NA 142 mmol/L (136-145)
[2020-09-13] MEDS: Montelukast 10 MG Tab PO SCH (08:09)
[2020-09-13] MEDS: Midodrine 5 MG Tab PO SCH ×2 (08:09→21:29)
[2020-09-13] MEDS: DULoxetine 30 MG Cap PO SCH (08:09)
[2020-09-13] MEDS: Rivaroxaban 10 MG Tab PO SCH (08:09)
[2020-09-13] MEDS: Cetirizine 10 MG Tab PO SCH (08:10)
[2020-09-13] MEDS: Gabapentin 300 MG Cap PO SCH ×3 (08:10→21:29)
[2020-09-13] MEDS: ADVAIR INH SCH ×2 (08:10→21:30)
[2020-09-13] MEDS: Sodium Chloride 1 GM Tab PO SCH ×2 (13:36→21:29)
--- NOTE | 2020-09-13 16:03 | PCM.PN ---
- General Info Date of Service: 09/13/20 Functional Status: Reports: Tolerating Diet, Urinating - Review of Systems General: Denies: Fever, Weakness HEENT: Reports: No Symptoms Pulmonary: Reports: No Symptoms Cardiovascular: Reports: No Symptoms Gastrointestinal: Denies: Abdominal Pain, Difficulty Swallowing Genitourinary: Denies: Dysuria, Frequency, Burning, Pain Musculoskeletal: Reports: Neck Pain Neurological: Denies: Confusion Psychiatric: Denies: No Symptoms - Patient Data Vitals - Most Recent: Last Vital Signs Temp 97.1 F 09/13/20 15:00 Pulse 82 09/13/20 15:00 Resp 16 09/13/20 15:00 BP 127/72 09/13/20 15:00 Pulse Ox 96 09/13/20 15:00 Orthostatic Blood Pressure [ 93/45 Standing] Orthostatic Blood Pressure [ 128/73 Sitting] Orthostatic Blood Pressure [ 136/70 Supine] Weight - Most Recent: 139 lb 8 oz I&O - Last 24 Hours: Intake & Output 09/13/20 09/13/20 09/13/20 06:59 14:59 22:59 Intake Total 100 1320 Balance 100 1320 Lab Results Last 24 Hours: Laboratory Results - last 24 hr 09/13/20 09/13/20 Range/Units 07:35 07:35 WBC 7.13 (5.00-10.00) 10^3/uL RBC 3.74 L (3.80-5.50) 10^6/uL Hgb 10.2 L (12.0-16.0) g/dL Hct 32.5 L (37.0-47.0) % MCV 86.9 (82.0-92.0) fL MCH 27.3 (27.0-31.0) pg MCHC 31.4 L (32.0-36.0) g/dL RDW 14.6 H (11.5-14.5) % Plt Count 408 H (150-400) 10^3/uL MPV 9.1 (7.4-10.4) fL Immature Gran % (Auto) 0.0 (0.0-5.0) % Neut % (Auto) 63.7 (50.0-70.0) % Lymph % (Auto) 21.5 (20.0-40.0) % Clare % (Auto) 10.2 H (2.0-8.0) % Eos % (Auto) 4.2 H (1.0-3.0) % Baso % (Auto) 0.4 (0.0-1.0) % Neut # (Auto) 4.54 (2.50-7.00) 10^3/uL Lymph # (Auto) 1.53 (1.00-4.00) 10^3/uL Clare # (Auto) 0.73 (0.10-0.80) 10^3/uL Eos # (Auto) 0.30 (0.10-0.30) 10^3/uL Baso # (Auto) 0.03 (0.00-0.10) 10^3/uL Immature Gran # (Auto) 0.00 (0.00-0.50) 10^3/uL Sodium 142 (136-145) mmol/L Potassium 3.9 (3.5-5.1) mmol/L Chloride 105 (98-107) mmol/L Carbon Dioxide 27.8 (21.0-32.0) mmol/L Anion Gap 13.1 (5-15) mmol/L BUN 9 (7-18) mg/dL Creatinine 0.77 (0.51-1.17) mg/dL Est Cr Clr Drug Dosing 47.64 mL/min Estimated GFR (MDRD) > 60 mL/min Glucose 96 (70-140) mg/dL Calcium 8.6 L (8.7-10.3) mg/dL Total Bilirubin 0.2 (0.2-1.0) mg/dL AST 16 (15-37) U/L ALT 16 (14-63) U/L Alkaline Phosphatase 117 H (46-116) U/L Total Protein 5.8 L (6.4-8.2) g/dL Albumin 2.07 L (3.40-5.00) g/dL Med Orders - Current: Current Medications Acetaminophen (Acetaminophen 325 Mg Tab) 650 mg PO Q6H PRN PRN Reason: Pain Last Admin: 09/11/20 21:47 Dose: 650 mg Documented by: Acyclovir (Acyclovir 400 Mg Tab) 800 mg PO TID PRN PRN Reason: Other Albuterol (Albuterol 8 Gm Inhaler Own Med) 0 gm INH Q4H PRN PRN Reason: Wheezing Cetirizine HCl (Cetirizine 10 Mg Tab) 10 mg PO DAILY [facility] Last Admin: 09/13/20 08:10 Dose: 10 mg Documented by: Cyclobenzaprine HCl (Cyclobenzaprine 10 Mg Tab) 5 mg PO TID PRN PRN Reason: Muscle Spasm - Painful Last Admin: 09/13/20 08:07 Dose: 5 mg Documented by: Docusate Sodium (Docusate Sodium 100 Mg Cap) 100 mg PO BEDTIME [facility] Last Admin: 09/12/20 20:03 Dose: 100 mg Documented by: Duloxetine HCl (Duloxetine 30 Mg Cap) 60 mg PO DAILY [facility] Last Admin: 09/13/20 08:09 Dose: 60 mg Documented by: Fluticasone Propionate (Fluticasone Propionate Nasal [place] 16 Gm Bottle Own Med) 0 gm NASBOTH BEDTIME [facility] Last Admin: 09/12/20 20:05 Dose: 1 spray Documented by: Gabapentin (Gabapentin 300 Mg Cap) 300 mg PO TID [facility] Last Admin: 09/13/20 13:36 Dose: 300 mg Documented by: Melatonin (Melatonin 3 Mg Tab) 3 mg PO BEDTIME PRN PRN Reason: Insomnia Last Admin: 09/12/20 22:03 Dose: 3 mg Documented by: Midodrine (Midodrine 5 Mg Tab) 5 mg PO BID [facility] Last Admin: 09/13/20 08:09 Dose: 5 mg Documented by: Montelukast Sodium (Montelukast 10 Mg Tab) 10 mg PO DAILY [facility] Last Admin: 09/13/20 08:09 Dose: 10 mg Documented by: Advair 250-50 Mcg (Inhaler Own Med) 0 each INH BID [facility] Last Admin: 09/13/20 08:10 Dose: 1 each Documented by: Nystatin (Nystatin Ointment 15 Gm Tube) 0 gm TOP BID PRN PRN Reason: yeast Omeprazole (Omeprazole 20 Mg Cap.Cr) 20 mg PO ACBREAKFAST [facility] Last Admin: 09/13/20 06:34 Dose: Not Given Documented by: Oxycodone HCl (Oxycodone 5 Mg Tab) 5 mg PO Q6H PRN PRN Reason: Pain Pramipexole Dihydrochloride (Pramipexole 0.125 Mg Tab) 0.25 mg PO BEDTIME [facility] Last Admin: 09/12/20 20:03 Dose: 0.25 mg Documented by: Rivaroxaban (Rivaroxaban 10 Mg Tab) 20 mg PO DAILY [facility] Last Admin: 09/13/20 08:09 Dose: 20 mg Documented by: Sodium Chloride (Sodium Chloride 1 Gm Tab) 1 gm PO BID [facility] Last Admin: 09/13/20 13:36 Dose: 1 gm Documented by: Discontinued Medications Hydrocodone Bitart/Acetaminophen (Acetaminophen/Hydrocodone 325-5 Mg Tab) 1 - 2 tab PO Q6H PRN PRN Reason: Pain (severe 7-10) Albuterol (Albuterol 8 Gm Inhaler) 0 gm INH Q4H PRN PRN Reason: Wheezing Fluticasone Propionate (Fluticasone Propionate Nasal [place] 16 Gm Bottle) 0 gm NASBOTH BEDTIME [facility] Last Admin: 09/11/20 22:43 Dose: Not Given Documented by: Fluticasone Propionate (Fluticasone Propionate Nasal [place] 16 Gm Bottle Own Med) 0 gm NASBOTH BEDTIME [facility] Sodium Chloride (Normal Saline) 1,000 mls @ 999 mls/hr IV .BOLUS ONE Stop: 09/11/20 16:54 Last Admin: 09/11/20 16:32 Dose: 999 mls/hr Documented by: Mometasone Furoate/Formoterol Fumar (Formoterol/Mometasone 200-5 Mcg 8.8 Gm Inhaler) 2 puff IH BID [facility] Last Admin: 09/11/20 22:43 Dose: Not Given Documented by: Non-Formulary Medication (Acetaminophen/Diphenhydramine [Tylenol Pm Ex-Strength Caplet]) 2 tab PO BEDTIME PRN PRN Reason: Insomnia Non-Formulary Medication (Alum Hydroxide/Mag Carbonate [Gaviscon]) 15 ml PO DAILY PRN PRN Reason: Heartburn - Exam Quality Assessment: No: Supplemental Oxygen General: Alert, Oriented, Cooperative, No Acute Distress Lungs: Clear to Auscultation, Normal Respiratory Effort Cardiovascular: Regular Rate, Regular Rhythm GI/Abdominal Exam: Normal Bowel Sounds, Soft Peripheral Pulses: 2+: Radial (L), Radial (R) Skin: Warm, Dry, Intact Neurological: Normal Speech, Normal Tone Psy/Mental Status: Alert, Normal Affect, Normal Mood - Patient Data Lab Results Last 24 hrs: Laboratory Results - last 24 hr 09/13/20 09/13/20 Range/Units 07:35 07:35 WBC 7.13 (5.00-10.00) 10^3/uL RBC 3.74 L (3.80-5.50) 10^6/uL Hgb 10.2 L (12.0-16.0) g/dL Hct 32.5 L (37.0-47.0) % MCV 86.9 (82.0-92.0) fL MCH 27.3 (27.0-31.0) pg MCHC 31.4 L (32.0-36.0) g/dL RDW 14.6 H (11.5-14.5) % Plt Count 408 H (150-400) 10^3/uL MPV 9.1 (7.4-10.4) fL Immature Gran % (Auto) 0.0 (0.0-5.0) % Neut % (Auto) 63.7 (50.0-70.0) % Lymph % (Auto) 21.5 (20.0-40.0) % Clare % (Auto) 10.2 H (2.0-8.0) % Eos % (Auto) 4.2 H (1.0-3.0) % Baso % (Auto) 0.4 (0.0-1.0) % Neut # (Auto) 4.54 (2.50-7.00) 10^3/uL Lymph # (Auto) 1.53 (1.00-4.00) 10^3/uL Clare # (Auto) 0.73 (0.10-0.80) 10^3/uL Eos # (Auto) 0.30 (0.10-0.30) 10^3/uL Baso # (Auto) 0.03 (0.00-0.10) 10^3/uL Immature Gran # (Auto) 0.00 (0.00-0.50) 10^3/uL Sodium 142 (136-145) mmol/L Potassium 3.9 (3.5-5.1) mmol/L Chloride 105 (98-107) mmol/L Carbon Dioxide 27.8 (21.0-32.0) mmol/L Anion Gap 13.1 (5-15) mmol/L BUN 9 (7-18) mg/dL Creatinine 0.77 (0.51-1.17) mg/dL Est Cr Clr Drug Dosing 47.64 mL/min Estimated GFR (MDRD) > 60 mL/min Glucose 96 (70-140) mg/dL Calcium 8.6 L (8.7-10.3) mg/dL Total Bilirubin 0.2 (0.2-1.0) mg/dL AST 16 (15-37) U/L ALT 16 (14-63) U/L Alkaline Phosphatase 117 H (46-116) U/L Total Protein 5.8 L (6.4-8.2) g/dL Albumin 2.07 L (3.40-5.00) g/dL Result Diagrams: 09/13/20 07:35 09/13/20 07:35 Sepsis Event Note - Evaluation Sepsis Screening Result: No Definite Risk - Focused Exam Vital Signs: Vital Signs Temp Pulse Resp BP Pulse Ox 09/13/20 15:00 97.1 F 82 16 127/72 96 09/13/20 14:00 80 94/54 L 09/13/20 12:53 91 133/70 09/13/20 12:50 86 129/61 09/13/20 11:00 96.9 F 86 16 124/70 95 09/13/20 09:52 63 100/51 L 09/13/20 09:51 66 84/57 L 09/13/20 09:49 76 118/61 09/13/20 06:27 98.0 F 66 18 136/70 96 09/13/20 04:00 97.1 F 81 20 152/80 H 96 - Problem List Review Problem List Initiated/Reviewed/Updated: Yes - My Orders Last 24 Hours: My Active Orders 09/13/20 13:30 Sodium Chloride 1 gm PO BID 09/13/20 14:27 Communication Order [RC] DAILY 09/13/20 14:28 Communication Order [RC] DAILY 09/13/20 Dinner Adult Diet [DIET] - Plan Plan:: HPI summary: Lucero is a 75y F patient who presented to the [facility] ER yesterday afternoon for complaints of dizziness. States she had never felt dizzy until her recent back surgery on 08/14/20. Since that time she has fallen twice and has had several episodes in which she caught herself, but felt as though she was going to fall. The most recent fall occurred two days ago. Patient has had low blood pressures recently with her blood pressure medications stopped about 2.5 weeks ago. She drinks 40 ounces of water daily as well as other fluids consisting of juice, coffee and soda. She reports decreased appetite and has to eat small amounts due to "feeling full" as she has a hiatal hernia which limits her intake. ED course: EKG obtained indicating NSR with left axis deviation. Patient had positive orthostatic vital signs with decrease in blood pressure from 133/72 supine to 98/33 when standing. 1L NS bolus was given in ER. X-ray of the lumbar spine was completed, no concern for fracture or dislocation; hardware intact to L3-S1. WBC normal 9.84, Hgb 11.0, Na 137, K 3.9, Alk Phos 130, protein 6.2, albumin 2.18. Hospital course: 09/12/20: Patient denies dizziness today. Orthostatic VS repeated and remains positive with BP 88/50 standing. Labs repeated and overall unremarkable. Encouraged protein intake due to hypoalbuminemia and recent lumbar surgery. 09/13/2020; orthostatic still demonstrate orthostatic hypotension however suggest neurogenic component without reflex tachycardia or cardiac response. Hospitalization problems and plan: # Orthostatic hypotension--suspect neurological component, add post prandial orthostatics # Dizziness # Recent fall - midodrine 5mg PO BID per Dr Madden - Plan for carotid ultrasound and repeat Echocardiogram as outpatient # Hypoalbuminemia - Protein supplementation Chronic, stable conditions: # Essential hypertension, stable - medications recently stopped. # Rheumatoid arthritis - biologics currently on hold due to recent lumbar surgery # Hiatal hernia # Chronic persistent allergic asthma # Pulmonary nodules # Thrombophilia # Restless legs # S/P lumbar fusion # Nephrolithiasis Hospitalization details: # FEN: Oral fluids, electrolytes stable, add high sodium diet. # PPX: On xarelto # Code status: FULL CODE # Emergency contact: Mitchel Collier Disposition/overall plan --Suspect neurogenic component of orthostatic hypotension. High sodium diet, add sodium chloride 1 g by mouth twice a day. Encourage by mouth fluid. Daughter on rounds tomorrow likely will be discharged however will need further treatment and discussion with family
[2020-09-13] MEDS: Acetaminophen 325 MG Tab PO PRN (19:37)
[2020-09-13] MEDS ORDERED: Aluminum Hydroxide/Magnesium Hydroxide/Simethicone Susp 30 ML Cup PO PRN (21:15)
[2020-09-13] MEDS: Pramipexole 0.125 MG Tab PO SCH (21:29)
[2020-09-13] MEDS: Docusate Sodium 100 MG Cap PO SCH (21:29)
[2020-09-13] MEDS: Fluticasone Propionate Nasal Spray 16 GM Bottle **OWN MED NASBOTH SCH (21:30)
[2020-09-13] MEDS ORDERED: Ondansetron 4 MG Tab.DIS PO PRN (21:42)
[2020-09-13] MEDS: Melatonin 3 MG Tab PO PRN (22:00)
[2020-09-14 06:20] VITALS: BP 133/69; PULSE 73
[2020-09-14] MEDS: Sodium Chloride 1 GM Tab PO SCH (08:22)
[2020-09-14] MEDS: ADVAIR INH SCH (08:23)
[2020-09-14] MEDS: DULoxetine 30 MG Cap PO SCH (08:23)
[2020-09-14] MEDS: Cetirizine 10 MG Tab PO SCH (08:24)
[2020-09-14] MEDS: Gabapentin 300 MG Cap PO SCH (08:24)
[2020-09-14] MEDS: Midodrine 5 MG Tab PO SCH (08:24)
[2020-09-14] MEDS: Montelukast 10 MG Tab PO SCH (08:24)
[2020-09-14] MEDS: Rivaroxaban 10 MG Tab PO SCH (08:24)
[2020-09-14] MEDS: Omeprazole 20 MG Cap.CR PO SCH (08:24)
--- NOTE | 2020-09-15 09:24 | PCM.DCSUM1 ---
Discharge Summary - Hospital Course Diagnosis: Stroke: No - Discharge Data Discharge Date: 09/15/20 Discharge Disposition: Home, Self-Care 01 Condition: Good - Referral to Home Health Primary Care Physician: Isabella Sanchez MD - Patient Instructions Diet, Other: High Salt Driving: Do Not Drive Showering/Bathing: May Shower Notify Provider of: Nausea and/or Vomiting Other/Special Instructions: --High salt diet. --Plenty of fluids up to 2 L/day. --We ordered you your compression hoses through your pharmacy. --We discussed about about leg crossing, getting up slowly from lying or sitting position. --You may need further testing as discussed - Discharge Plan *PRESCRIPTION DRUG MONITORING PROGRAM REVIEWED*: No *COPY OF PRESCRIPTION DRUG MONITORING REPORT IN PATIENT CYRUS: No Prescriptions/Med Rec: Midodrine 10 mg PO BID #60 tablet Home Medications: Home Meds Albuterol [Proventil HFA] 2 puff INH Q4H PRN 01/16/18 [History] Cetirizine [ZyrTEC] 10 mg PO DAILY 01/16/18 [History] Fluticasone/Salmeterol [Advair 250-50] 1 puff INH BID 01/16/18 [History] Montelukast [Singulair] 10 mg PO DAILY 01/16/18 [History] Nystatin [Nystatin Ointment] 1 applic TOP BID PRN 01/16/18 [History] Omeprazole 20 mg PO ACBREAKFAST 01/16/18 [History] Fluticasone Propionate [Flonase] 1 spray NS BEDTIME 08/27/18 [History] Acyclovir [Zovirax] 800 mg PO TID PRN 10/21/19 [History] Alum Hydroxide/Mag Carbonate [Gaviscon] 15 ml PO DAILY PRN 10/21/19 [History] Cyclobenzaprine [Flexeril] 5 mg PO TID PRN 10/21/19 [History] Rivaroxaban [Xarelto] 20 mg PO DAILY 10/21/19 [History] DULoxetine HCl [Cymbalta] 60 mg PO DAILY 05/24/20 [History] Pramipexole [Mirapex] 0.25 mg PO BEDTIME 05/24/20 [History] Acetaminophen [Tylenol] 650 mg PO Q6H PRN 09/11/20 [History] Acetaminophen/Diphenhydramine [Tylenol Pm Ex-Strength Caplet] 2 tab PO BEDTIME PRN 09/11/20 [History] Docusate Sodium 100 mg PO BEDTIME 09/11/20 [History] Gabapentin [Neurontin] 300 mg PO TID 09/11/20 [History] Hydrocodone/Acetaminophen [HYDROcodone-Acetaminophen 5-325 MG] 1 - 2 tab PO Q6H PRN 09/11/20 [History] oxyCODONE 5 mg PO Q6H PRN 09/11/20 [History] Midodrine 10 mg PO BID #60 tablet 09/14/20 [Rx] Referrals: sIabella Sanchez MD [Primary Care Provider] - - Discharge Summary/Plan Comment DC Time >30 min.: Yes Discharge Summary/Plan Comment: Final diagnosis --Orthostatic hypotension--suspect neurological component, --Post lumbar fusion with recent fall --Hypoalbuminemia, protein malnutrition, Protein supplementation Chronic health problems Essential hypertension, risk factor for [place] Rheumatoid arthritis Hiatal hernia Asthma, persistent Pulmonary nodules Thrombophilia Restless legs Nephrolithiasis History summary Ms Jose F Barker is a 75y F patient who presented to the [place] ED complaining of dizziness. States she had never felt dizzy until her recent back surgery on 08/14/20. Since that time she has fallen twice and has had several episodes in which she caught herself, but felt as though she was going to fall. The most recent fall occurred two days prior to this current admission. It was noted that she had been having low BP's recently with her blood pressure medications stopped ~2-3 weeks ago. She drinks 40 ounces of water daily as well as other fluids consisting of juice, coffee and soda. ED course: EKG obtained indicating NSR with left axis deviation. Patient had positive orthostatic vital signs with decrease in blood pressure from 133/72 supine to 98/33 when standing. 1L NS bolus was given in ER. X-ray of the lumbar spine was completed, no concern for fracture or dislocation; hardware intact to L3-S1. WBC normal 9.84, Hgb 11.0, Na 137, K 3.9, Alk Phos 130, protein 6.2, albumin 2.18. Hospital course: 09/12/20: Patient denies dizziness today. Orthostatic VS repeated and remains positive with BP 88/50 standing. Labs repeated and overall unremarkable. Encouraged protein intake due to hypoalbuminemia and recent lumbar surgery. Added post prandial orthostatics 09/13/2020; orthostatic still demonstrate orthostatic hypotension however suggest neurogenic component without reflex tachycardia or cardiac response. It appeared early on in her admission that she did have reflex tachycardia in response to low BP however after being fully hydrated she no longer had reflexive tachycardia. Postprandial orthostatic hypotension noted Orthostatics; Supine Sitting Standing 133/72 112/68 98/33 71 78 85 141/76 126/70 88/50 72 77 101 129/61 133/70 94/54 83 91 67 118/61 84/57 100/51 (post-prandial) 09/13 80 66 67 133/69 123/69 94/62 73 82 84 Medication changes/adjustments upon discharge Midodrine, 10 mg p.o. twice daily(increased from 5 mg twice daily day of admission) Poorly tolerated p.o. sodium chloride tablets due to GI Discharge/disposition --Patient will be discharged home with ongoing home health services --Patient educated on, getting up slowly from a crossing legs, high sodium diet, 2 L fluid per day, support hose/stockings ordered --She will follow up with her primary care provider Dr. Sanchez --Plan for carotid ultrasound and repeat Echocardiogram as outpatient - General Info Functional Status: Reports: Pain Controlled, Tolerating Diet, Ambulating. Denies: New Symptoms - Review of Systems General: Reports: Appetite. Denies: Fever, Weakness HEENT: Reports: No Symptoms Pulmonary: Reports: No Symptoms Cardiovascular: Reports: No Symptoms Gastrointestinal: Denies: Diarrhea, Nausea Musculoskeletal: Reports: Neck Pain Skin: Reports: No Symptoms Neurological: Denies: Dizziness Psychiatric: Reports: No Symptoms - Patient Data Vitals - Most Recent: Last Vital Signs Temp 98.2 F 09/14/20 06:19 Pulse 73 09/14/20 06:19 Resp 20 09/14/20 06:19 BP 133/69 09/14/20 06:19 Pulse Ox 94 L 09/14/20 06:19 Orthostatic Blood Pressure [ 94/62 Standing] Orthostatic Blood Pressure [ 123/69 Sitting] Orthostatic Blood Pressure [ 133/69 Supine] Weight - Most Recent: 139 lb 8 oz Med Orders - Current: Current Medications Discontinued Medications Acetaminophen (Acetaminophen 325 Mg Tab) 650 mg PO Q6H PRN PRN Reason: Pain Last Admin: 09/13/20 19:37 Dose: 650 mg Documented by: Hydrocodone Bitart/Acetaminophen (Acetaminophen/Hydrocodone 325-5 Mg Tab) 1 - 2 tab PO Q6H PRN PRN Reason: Pain (severe 7-10) Acyclovir (Acyclovir 400 Mg Tab) 800 mg PO TID PRN PRN Reason: Other Al Hydroxide/Mg Hydroxide (Aluminum Hydroxide/Magnesium Hydroxide/Simethicone Susp 30 Ml Cup) 30 ml PO Q6H PRN PRN Reason: Gas Last Admin: 09/13/20 21:31 Dose: 30 ml Documented by: Albuterol (Albuterol 8 Gm Inhaler) 0 gm INH Q4H PRN PRN Reason: Wheezing Albuterol (Albuterol 8 Gm Inhaler Own Med) 0 gm INH Q4H PRN PRN Reason: Wheezing Cetirizine HCl (Cetirizine 10 Mg Tab) 10 mg PO DAILY [facility] Last Admin: 09/14/20 08:24 Dose: 10 mg Documented by: Cyclobenzaprine HCl (Cyclobenzaprine 10 Mg Tab) 5 mg PO TID PRN PRN Reason: Muscle Spasm - Painful Last Admin: 09/13/20 19:36 Dose: 5 mg Documented by: Docusate Sodium (Docusate Sodium 100 Mg Cap) 100 mg PO BEDTIME [facility] Last Admin: 09/13/20 21:29 Dose: 100 mg Documented by: Duloxetine HCl (Duloxetine 30 Mg Cap) 60 mg PO DAILY [facility] Last Admin: 09/14/20 08:23 Dose: 60 mg Documented by: Fluticasone Propionate (Fluticasone Propionate Nasal [place] 16 Gm Bottle) 0 gm NASBOTH BEDTIME [facility] Last Admin: 09/11/20 22:43 Dose: Not Given Documented by: Fluticasone Propionate (Fluticasone Propionate Nasal [place] 16 Gm Bottle Own Med) 0 gm NASBOTH BEDTIME [facility] Fluticasone Propionate (Fluticasone Propionate Nasal [place] 16 Gm Bottle Own Med) 0 gm NASBOTH BEDTIME [facility] Last Admin: 09/13/20 21:30 Dose: 1 spray Documented by: Gabapentin (Gabapentin 300 Mg Cap) 300 mg PO TID [facility] Last Admin: 09/14/20 08:24 Dose: 300 mg Documented by: Sodium Chloride (Normal Saline) 1,000 mls @ 999 mls/hr IV .BOLUS ONE Stop: 09/11/20 16:54 Last Admin: 09/11/20 16:32 Dose: 999 mls/hr Documented by: Melatonin (Melatonin 3 Mg Tab) 3 mg PO BEDTIME PRN PRN Reason: Insomnia Last Admin: 09/13/20 22:00 Dose: 3 mg Documented by: Midodrine (Midodrine 5 Mg Tab) 5 mg PO BID [facility] Last Admin: 09/14/20 08:24 Dose: 5 mg Documented by: Mometasone Furoate/Formoterol Fumar (Formoterol/Mometasone 200-5 Mcg 8.8 Gm Inhaler) 2 puff IH BID [facility] Last Admin: 09/11/20 22:43 Dose: Not Given Documented by: Montelukast Sodium (Montelukast 10 Mg Tab) 10 mg PO DAILY [facility] Last Admin: 09/14/20 08:24 Dose: 10 mg Documented by: Non-Formulary Medication (Acetaminophen/Diphenhydramine [Tylenol Pm Ex-Strength Caplet]) 2 tab PO BEDTIME PRN PRN Reason: Insomnia Non-Formulary Medication (Alum Hydroxide/Mag Carbonate [Gaviscon]) 15 ml PO DAILY PRN PRN Reason: Heartburn Advair 250-50 Mcg (Inhaler Own Med) 0 each INH BID [facility] Last Admin: 09/14/20 08:23 Dose: 1 each Documented by: Nystatin (Nystatin Ointment 15 Gm Tube) 0 gm TOP BID PRN PRN Reason: yeast Omeprazole (Omeprazole 20 Mg Cap.Cr) 20 mg PO ACBREAKFAST [facility] Last Admin: 09/14/20 08:24 Dose: 20 mg Documented by: Ondansetron HCl (Ondansetron 4 Mg Tab.Dis) 4 mg PO Q4H PRN PRN Reason: Nausea/Vomiting Last Admin: 09/13/20 21:51 Dose: 4 mg Documented by: Oxycodone HCl (Oxycodone 5 Mg Tab) 5 mg PO Q6H PRN PRN Reason: Pain Pramipexole Dihydrochloride (Pramipexole 0.125 Mg Tab) 0.25 mg PO BEDTIME [facility] Last Admin: 09/13/20 21:29 Dose: 0.25 mg Documented by: Rivaroxaban (Rivaroxaban 10 Mg Tab) 20 mg PO DAILY [facility] Last Admin: 09/14/20 08:24 Dose: 20 mg Documented by: Sodium Chloride (Sodium Chloride 1 Gm Tab) 1 gm PO BID [facility] Last Admin: 09/14/20 08:22 Dose: Not Given Documented by: - Exam Quality Assessment: Denies: Supplemental Oxygen General: Reports: Alert Neck: Reports: Supple Lungs: Reports: Clear to Auscultation, Normal Respiratory Effort Cardiovascular: Reports: Regular Rate, Regular Rhythm GI/Abdominal Exam: Soft
== END 2020-09-14 10:35 | disposition home or self-care (01) | DRG 57 ==
LOC: KA.ED 13:56 → KA.MS 17:00
PROVIDERS: ADMIT Family Medicine; ATTEND Family Medicine
DX: G90.3 Multi-system degeneration of the autonomic nervous system (principal); R29.6 Repeated falls; D68.59 Other primary thrombophilia; D84.9 Immunodeficiency, unspecified; E46 Unspecified protein-calorie malnutrition; E88.09 Other disorders of plasma-protein metabolism, not elsewhere classified; I10 Essential (primary) hypertension; M06.9 Rheumatoid arthritis, unspecified; K44.9 Diaphragmatic hernia without obstruction or gangrene; Z20.822 Contact with and (suspected) exposure to COVID-19; G25.81 Restless legs syndrome; N20.0 Calculus of kidney; H54.7 Unspecified visual loss; E78.00 Pure hypercholesterolemia, unspecified; M19.90 Unspecified osteoarthritis, unspecified site; M81.0 Age-related osteoporosis without current pathological fracture; J45.909 Unspecified asthma, uncomplicated; K21.9 Gastro-esophageal reflux disease without esophagitis; G89.29 Other chronic pain; M54.9 Dorsalgia, unspecified; Z88.8 Allergy status to other drugs, medicaments and biological substances; Z79.899 Other long term (current) drug therapy; Z86.718 Personal history of other venous thrombosis and embolism; Z68.26 Body mass index [BMI] 26.0-26.9, adult; Z91.81 History of falling; Z86.711 Personal history of pulmonary embolism; Z79.01 Long term (current) use of anticoagulants
CPT/HCPCS: 36415; 72100; 80053; 85025; 85027; 93005; 99284; 99285-25; A9270-GY; J7030; U0002

== ENCOUNTER 2020-10-16 12:27 | Observation (INO) | payer MEDICARE, OTHER ==
[2020-10-16] MEDS ORDERED: oxyCODONE 5 MG Tab PO PRN (14:04)
[2020-10-16] MEDS ORDERED: Nystatin Ointment 15 GM Tube TOP PRN (14:10)
[2020-10-16] MEDS ORDERED: Cyclobenzaprine 5 MG Tab PO PRN (14:15)
[2020-10-16] MEDS ORDERED: Acetaminophen 325 MG Tab PO PRN (14:15)
[2020-10-16] MEDS ORDERED: Albuterol/Ipratropium 3.0-0.5 MG/3 ML Neb Soln INH PRN (14:16)
[2020-10-16 14:30] LABS: ANION GAP 16.8 mmol/L (5-15)
[2020-10-16] MEDS ORDERED: ALBUTEROL INH PRN (14:35)
[2020-10-16] MEDS ORDERED: Acetaminophen 500 MG Tab PO PRN (14:59)
[2020-10-16] MEDS ORDERED: diphenhydrAMINE 25 MG Cap PO PRN (15:00)
--- NOTE | 2020-10-16 15:30 | CR ---
[id number] RAD/RAD Chest PA And Lateral EXAM: FRONTAL AND LATERAL CHEST INDICATION: DYSPNEA, CHEST PAIN. COMPARISON: August 27, 2018. DISCUSSION: Posterior basal left lower lobe atelectasis and infiltrates. Normal heart size. The right lung is clear. No effusions. Partially imaged fusion hardware in the lumbar spine appear IMPRESSION: 1. Mild left base infiltrates and atelectasis. Alejandro Ruvalcaba MD 10/16/20 [id number] Thank you for allowing us to participate in the care of your patient.
[2020-10-16] MEDS: Sodium Chloride 0.9% 1,000 ML IV SCH (16:29)
[2020-10-16] MEDS ORDERED: Iopamidol 755 Mg/ML 75 ML Bottle IVPUSH ONE (17:33)
[2020-10-16] MEDS: Sodium Chloride 0.9% 100 ML IV SCH (18:17)
--- NOTE | 2020-10-16 18:40 | CT ---
[id number] CT/CTA Chest Exam: CTA Chest Clinical Data: ELEVATED D-DIMER CHEST PAIN SHORTNESS OF BREATH COMPARISON: NO PREVIOUS SIMILAR EXAM IS AVAILABLE FINDINGS: There is scarring at the lung bases with evidence of bronchiectasis There is 2left-sided nephrolithiasis There is mild right-sided hydronephrosis Consider further imaging of the kidneys if needed. There is no adrenal mass. There are no pulmonary emboli IMPRESSION: NO PULMONARY EMBOLI Jesse Valenzuela MD 10/16/20 [id number] Thank you for allowing us to participate in the care of your patient.
[2020-10-16] MEDS: Omeprazole 20 MG Cap.CR PO SCH (19:37)
[2020-10-16] MEDS ORDERED: Gabapentin 100 MG Cap PO PRN (20:19)
[2020-10-16] MEDS: Melatonin 3 MG Tab PO SCH (20:49)
[2020-10-16] MEDS: Montelukast 10 MG Tab ** OWN MED PO SCH (20:49)
[2020-10-16] MEDS: Pramipexole 0.125 MG Tab PO SCH (20:49)
[2020-10-16] MEDS: Docusate Sodium 100 MG Cap PO SCH (20:49)
[2020-10-16] MEDS: Fluticasone Propionate Nasal Spray 16 GM Bottle ** OWN MED NAS SCH (20:50)
[2020-10-16] MEDS: SALMETEROL INH SCH (20:51)
[2020-10-16] MEDS: FLUTICASONE PROPION INH SCH (20:51)
[2020-10-16] MEDS ORDERED: GABAPENTIN 100 MG PO SCH (21:00)
[2020-10-16] MEDS ORDERED: Pramipexole 0.5 MG Tab PO SCH (21:00)
[2020-10-16] MEDS ORDERED: Levofloxacin/Dextrose 5%-Water 500 MG in Premix Bag 1 BAG IV ONE (21:00)
[2020-10-16] MEDS ORDERED: Gabapentin 100 MG Cap PO SCH (21:00)
[2020-10-16] MEDS ORDERED: Levofloxacin/Dextrose 5%-Water 250 MG in Premix Bag 1 BAG IV ONE (21:02)
[2020-10-16] MEDS ORDERED: GABAPENTIN 100 MG PO PRN (21:18)
[2020-10-17] MEDS: Sodium Chloride 0.9% 1,000 ML IV SCH (01:05)
[2020-10-17] MEDS: Omeprazole 20 MG Cap.CR PO SCH ×2 (08:00→17:29)
[2020-10-17] MEDS: FOLIC ACID 1 MG PO SCH (08:03)
[2020-10-17] MEDS: CETIRIZINE 10 MG PO SCH (08:03)
[2020-10-17] MEDS: Multivitamins with Minerals/Iron/Folic Acid/Lycopene Tab PO SCH (08:03)
[2020-10-17] MEDS: SALMETEROL INH SCH ×2 (08:04→21:42)
[2020-10-17] MEDS: DULOXETINE 60 MG PO SCH (08:04)
[2020-10-17] MEDS: FLUTICASONE PROPION INH SCH ×2 (08:04→21:42)
[2020-10-17] MEDS: RIVAROXABAN 20 MG PO SCH (08:05)
[2020-10-17 08:14] LABS: ANION GAP 11.2 mmol/L (5-15); CHLORIDE,CL 105 mmol/L (98-107); SODIUM,NA 140 mmol/L (136-145)
[2020-10-17] MEDS ORDERED: Fludrocortisone 0.1 MG Tab PO ONE (10:09)
--- NOTE | 2020-10-17 10:16 | PCM.PN ---
- General Info Date of Service: 10/17/20 Functional Status: Reports: Pain Controlled, Tolerating Diet, Ambulating, Urinating. Denies: Incentive Spirometry - Review of Systems General: Denies: Fever, Weakness, Fatigue, Malaise, Chills HEENT: Reports: No Symptoms Pulmonary: Denies: Shortness of Breath, Cough, Sputum, Hemoptysis, Wheezing Cardiovascular: Denies: Chest Pain, Edema, Lightheadedness Gastrointestinal: Reports: No Symptoms Genitourinary: Reports: No Symptoms Musculoskeletal: Reports: No Symptoms Skin: Reports: No Symptoms Neurological: Denies: Confusion, Dizziness Psychiatric: Reports: No Symptoms - Patient Data Vitals - Most Recent: Last Vital Signs Temp 97.6 F 10/17/20 06:32 Pulse 73 10/17/20 06:32 Resp 24 H 10/17/20 06:32 BP 118/65 10/17/20 06:32 Pulse Ox 94 L 10/17/20 06:32 Orthostatic Blood Pressure [ 99/44 Standing] Orthostatic Blood Pressure [ 117/73 Sitting] Orthostatic Blood Pressure [ 131/72 Supine] Weight - Most Recent: 128 lb I&O - Last 24 Hours: Intake & Output 10/16/20 10/17/20 10/17/20 22:59 06:59 14:59 Intake Total 320 800 Balance 320 800 Lab Results Last 24 Hours: Laboratory Results - last 24 hr 10/16/20 10/16/20 10/16/20 Range/Units 13:30 13:58 13:58 WBC 16.43 H (5.00-10.00) 10^3/uL RBC 4.02 (3.80-5.50) 10^6/uL Hgb 10.1 L (12.0-16.0) g/dL Hct 33.2 L (37.0-47.0) % MCV 82.6 D (82.0-92.0) fL MCH 25.1 L (27.0-31.0) pg MCHC 30.4 L (32.0-36.0) g/dL RDW 16.7 H (11.5-14.5) % Plt Count 695 H D (150-400) 10^3/uL MPV 8.7 (7.4-10.4) fL Immature Gran % (Auto) 0.3 (0.0-5.0) % Neut % (Auto) 86.5 H (50.0-70.0) % Lymph % (Auto) 6.4 L (20.0-40.0) % [place] % (Auto) 6.5 (2.0-8.0) % Eos % (Auto) 0.2 L (1.0-3.0) % Baso % (Auto) 0.1 (0.0-1.0) % Neut # (Auto) 14.22 H (2.50-7.00) 10^3/uL Lymph # (Auto) 1.05 (1.00-4.00) 10^3/uL [place] # (Auto) 1.06 H (0.10-0.80) 10^3/uL Eos # (Auto) 0.03 L (0.10-0.30) 10^3/uL Baso # (Auto) 0.02 (0.00-0.10) 10^3/uL Immature Gran # (Auto) 0.05 (0.00-0.50) 10^3/uL D-Dimer, Quantitative 3300 H (<400) ng/mL Sodium (136-145) mmol/L Potassium (3.5-5.1) mmol/L Chloride (98-107) mmol/L Carbon Dioxide (21.0-32.0) mmol/L Anion Gap (5-15) mmol/L BUN (7-18) mg/dL Creatinine (0.51-1.17) mg/dL Est Cr Clr Drug Dosing mL/min Estimated GFR (MDRD) mL/min Glucose (70-140) mg/dL Calcium (8.7-10.3) mg/dL Total Bilirubin (0.2-1.0) mg/dL AST (15-37) U/L ALT (14-63) U/L Alkaline Phosphatase (46-116) U/L Troponin I High Sens (0-51.000) pg/mL C-Reactive Protein (0.0-0.9) mg/dL B-Natriuretic Peptide (0-100) pg/mL Total Protein (6.4-8.2) g/dL Albumin (3.40-5.00) g/dL SARS CoV-2 RNA Rapid WINTER Negative (NEGATIVE) 10/16/20 10/16/20 10/17/20 Range/Units 13:58 13:58 07:40 WBC 9.78 (5.00-10.00) 10^3/uL RBC 3.54 L (3.80-5.50) 10^6/uL Hgb 8.8 L (12.0-16.0) g/dL Hct 29.8 L (37.0-47.0) % MCV 84.2 (82.0-92.0) fL MCH 24.9 L (27.0-31.0) pg MCHC 29.5 L (32.0-36.0) g/dL RDW 16.6 H (11.5-14.5) % Plt Count 558 H D (150-400) 10^3/uL MPV 8.7 (7.4-10.4) fL Immature Gran % (Auto) 0.3 (0.0-5.0) % Neut % (Auto) 72.3 H (50.0-70.0) % Lymph % (Auto) 17.2 L (20.0-40.0) % [place] % (Auto) 7.8 (2.0-8.0) % Eos % (Auto) 2.0 (1.0-3.0) % Baso % (Auto) 0.4 (0.0-1.0) % Neut # (Auto) 7.07 H (2.50-7.00) 10^3/uL Lymph # (Auto) 1.68 (1.00-4.00) 10^3/uL [place] # (Auto) 0.76 (0.10-0.80) 10^3/uL Eos # (Auto) 0.20 (0.10-0.30) 10^3/uL Baso # (Auto) 0.04 (0.00-0.10) 10^3/uL Immature Gran # (Auto) 0.03 (0.00-0.50) 10^3/uL D-Dimer, Quantitative (<400) ng/mL Sodium 136 (136-145) mmol/L Potassium 4.8 (3.5-5.1) mmol/L Chloride 98 (98-107) mmol/L Carbon Dioxide 26.0 (21.0-32.0) mmol/L Anion Gap 16.8 H (5-15) mmol/L BUN 20 H (7-18) mg/dL Creatinine 0.97 (0.51-1.17) mg/dL Est Cr Clr Drug Dosing 1.84 mL/min Estimated GFR (MDRD) 56 mL/min Glucose 121 (70-140) mg/dL Calcium 8.9 (8.7-10.3) mg/dL Total Bilirubin 0.5 (0.2-1.0) mg/dL AST 21 (15-37) U/L ALT 24 (14-63) U/L Alkaline Phosphatase 71 (46-116) U/L Troponin I High Sens 10.700 (0-51.000) pg/mL C-Reactive Protein 20.9 H (0.0-0.9) mg/dL B-Natriuretic Peptide 325 H (0-100) pg/mL Total Protein 6.9 (6.4-8.2) g/dL Albumin 1.96 L (3.40-5.00) g/dL SARS CoV-2 RNA Rapid WINTER (NEGATIVE) 10/17/20 Range/Units 07:40 WBC (5.00-10.00) 10^3/uL RBC (3.80-5.50) 10^6/uL Hgb (12.0-16.0) g/dL Hct (37.0-47.0) % MCV (82.0-92.0) fL MCH (27.0-31.0) pg MCHC (32.0-36.0) g/dL RDW (11.5-14.5) % Plt Count (150-400) 10^3/uL MPV (7.4-10.4) fL Immature Gran % (Auto) (0.0-5.0) % Neut % (Auto) (50.0-70.0) % Lymph % (Auto) (20.0-40.0) % [place] % (Auto) (2.0-8.0) % Eos % (Auto) (1.0-3.0) % Baso % (Auto) (0.0-1.0) % Neut # (Auto) (2.50-7.00) 10^3/uL Lymph # (Auto) (1.00-4.00) 10^3/uL [place] # (Auto) (0.10-0.80) 10^3/uL Eos # (Auto) (0.10-0.30) 10^3/uL Baso # (Auto) (0.00-0.10) 10^3/uL Immature Gran # (Auto) (0.00-0.50) 10^3/uL D-Dimer, Quantitative (<400) ng/mL Sodium 140 (136-145) mmol/L Potassium 4.0 (3.5-5.1) mmol/L Chloride 105 (98-107) mmol/L Carbon Dioxide 27.8 (21.0-32.0) mmol/L Anion Gap 11.2 (5-15) mmol/L BUN 16 (7-18) mg/dL Creatinine 0.78 (0.51-1.17) mg/dL Est Cr Clr Drug Dosing 49.29 mL/min Estimated GFR (MDRD) > 60 mL/min Glucose 82 (70-140) mg/dL Calcium 7.8 L (8.7-10.3) mg/dL Total Bilirubin (0.2-1.0) mg/dL AST (15-37) U/L ALT (14-63) U/L Alkaline Phosphatase (46-116) U/L Troponin I High Sens (0-51.000) pg/mL C-Reactive Protein (0.0-0.9) mg/dL B-Natriuretic Peptide (0-100) pg/mL Total Protein (6.4-8.2) g/dL Albumin (3.40-5.00) g/dL SARS CoV-2 RNA Rapid WINTER (NEGATIVE) Med Orders - Current: Current Medications Acetaminophen (Acetaminophen 325 Mg Tab) 650 mg PO DAILY PRN PRN Reason: Pain Acetaminophen (Acetaminophen 500 Mg Tab) 1,000 mg PO BEDTIME PRN PRN Reason: Insomnia Last Admin: 10/16/20 21:09 Dose: 1,000 mg Documented by: Albuterol (Albuterol 8 Gm Inhaler Own Med ) 0 gm INH Q4H PRN PRN Reason: Wheezing Albuterol/Ipratropium (Albuterol/Ipratropium 3.0-0.5 Mg/3 Ml Neb Soln) 3 ml INH Q6HR PRN PRN Reason: Wheezing Cetirizine HCl (Cetirizine 10 Mg Tab Own Med ) 10 mg PO DAILY [facility] Last Admin: 10/17/20 08:03 Dose: 10 mg Documented by: Cyclobenzaprine HCl (Cyclobenzaprine 5 Mg Tab) 5 mg PO DAILY PRN PRN Reason: Muscle Spasm - Painful Diphenhydramine HCl (Diphenhydramine 25 Mg Cap) 50 mg PO BEDTIME PRN PRN Reason: INSOMNIA Docusate Sodium (Docusate Sodium 100 Mg Cap) 100 mg PO BEDTIME [facility] Last Admin: 10/16/20 20:49 Dose: 100 mg Documented by: Fluticasone Propionate (Fluticasone Propionate Nasal [place] 16 Gm Bottle Own Med ) 0 gm JOHN BEDTIME [facility] Last Admin: 10/16/20 20:50 Dose: 1 puff Documented by: Folic Acid (Folic Acid 1 Mg Tab Own Med ) 2 mg PO DAILY [facility] Last Admin: 10/17/20 08:03 Dose: 2 mg Documented by: Gabapentin (Gabapentin 100 Mg Cap #Own Med#) 100 mg PO BEDTIME PRN PRN Reason: Pain Sodium Chloride (Normal Saline) 1,000 mls @ 125 mls/hr IV ASDIRECTED [facility] Last Admin: 10/17/20 01:05 Dose: 125 mls/hr Documented by: Sodium Chloride (Normal Saline) 100 mls @ 200 mls/hr IV ASDIRECTED [facility] Last Admin: 10/16/20 18:17 Dose: 200 mls/hr Documented by: Melatonin (Melatonin 3 Mg Tab) 3 mg PO BEDTIME [facility] Last Admin: 10/16/20 20:49 Dose: 3 mg Documented by: Montelukast Sodium (Montelukast 10 Mg Tab Own Med ) 10 mg PO BEDTIME [facility] Last Admin: 10/16/20 20:49 Dose: 10 mg Documented by: Multivitamins/Minerals (Multivitamins With Minerals/Iron/Folic Acid/Lycopene Tab) 1 tab PO DAILY [facility] Last Admin: 10/17/20 08:03 Dose: 1 tab Documented by: Rivaroxaban 20 Mg (Tab Own Med ) 20 each PO DAILY [facility] Last Admin: 10/17/20 08:05 Dose: 20 each Documented by: Fluticasone Propion/Salmeterol 250/50 Diskus Own Med 1 inh INH BID [facility] Last Admin: 10/17/20 08:04 Dose: 1 inh Documented by: Duloxetine 60mg Capsules Own Med 1 each PO DAILY [facility] Last Admin: 10/17/20 08:04 Dose: 1 each Documented by: Nystatin (Nystatin Ointment 15 Gm Tube) 0 gm TOP BID PRN PRN Reason: yeast Omeprazole (Omeprazole 20 Mg Cap.Cr) 20 mg PO BIDAC [facility] Last Admin: 10/17/20 08:00 Dose: 20 mg Documented by: Oxycodone HCl (Oxycodone 5 Mg Tab) 5 mg PO Q6H PRN PRN Reason: Pain (severe 7-10) Pramipexole Dihydrochloride (Pramipexole 0.125 Mg Tab) 0.25 mg PO BEDTIME [facility] Last Admin: 10/16/20 20:49 Dose: 0.25 mg Documented by: Discontinued Medications Gabapentin (Gabapentin 100 Mg Cap) 100 mg PO BID [facility] Gabapentin (Gabapentin 100 Mg Cap Own Med ) 100 mg PO BID [facility] Gabapentin (Gabapentin 100 Mg Cap) 100 mg PO BEDTIME PRN PRN Reason: Pain Levofloxacin/Dextrose 250 mg/ (Premix) 50 mls @ 50 mls/hr IV ONETIME ONE Stop: 10/16/20 22:01 Last Admin: 10/16/20 22:34 Dose: 50 mls/hr Documented by: Levofloxacin/Dextrose 500 mg/ (Premix) 100 mls @ 100 mls/hr IV ONETIME ONE Stop: 10/16/20 21:59 Last Admin: 10/16/20 21:31 Dose: 100 mls/hr Documented by: Iopamidol (Iopamidol 755 Mg/Ml 75 Ml Bottle) 75 ml IVPUSH ONETIME ONE Stop: 10/16/20 17:34 Last Admin: 10/16/20 18:17 Dose: 75 ml Documented by: Pramipexole Dihydrochloride (Pramipexole 0.5 Mg Tab) 0.25 mg PO BEDTIME [facility] - Exam Quality Assessment: No: Supplemental Oxygen General: Alert, Oriented, Cooperative, No Acute Distress Lungs: Clear to Auscultation, Normal Respiratory Effort Cardiovascular: Regular Rate, Regular Rhythm GI/Abdominal Exam: Normal Bowel Sounds, Soft (Female) Exam: Deferred Extremities: No Pedal Edema Peripheral Pulses: 2+: Radial (L), Radial (R) Skin: Warm, Dry, Intact Neurological: No New Focal Deficit Psy/Mental Status: Alert, Normal Affect, Normal Mood - Patient Data Lab Results Last 24 hrs: Laboratory Results - last 24 hr 10/16/20 10/16/20 10/16/20 Range/Units 13:30 13:58 13:58 WBC 16.43 H (5.00-10.00) 10^3/uL RBC 4.02 (3.80-5.50) 10^6/uL Hgb 10.1 L (12.0-16.0) g/dL Hct 33.2 L (37.0-47.0) % MCV 82.6 D (82.0-92.0) fL MCH 25.1 L (27.0-31.0) pg MCHC 30.4 L (32.0-36.0) g/dL RDW 16.7 H (11.5-14.5) % Plt Count 695 H D (150-400) 10^3/uL MPV 8.7 (7.4-10.4) fL Immature Gran % (Auto) 0.3 (0.0-5.0) % Neut % (Auto) 86.5 H (50.0-70.0) % Lymph % (Auto) 6.4 L (20.0-40.0) % [place] % (Auto) 6.5 (2.0-8.0) % Eos % (Auto) 0.2 L (1.0-3.0) % Baso % (Auto) 0.1 (0.0-1.0) % Neut # (Auto) 14.22 H (2.50-7.00) 10^3/uL Lymph # (Auto) 1.05 (1.00-4.00) 10^3/uL [place] # (Auto) 1.06 H (0.10-0.80) 10^3/uL Eos # (Auto) 0.03 L (0.10-0.30) 10^3/uL Baso # (Auto) 0.02 (0.00-0.10) 10^3/uL Immature Gran # (Auto) 0.05 (0.00-0.50) 10^3/uL D-Dimer, Quantitative 3300 H (<400) ng/mL Sodium (136-145) mmol/L Potassium (3.5-5.1) mmol/L Chloride (98-107) mmol/L Carbon Dioxide (21.0-32.0) mmol/L Anion Gap (5-15) mmol/L BUN (7-18) mg/dL Creatinine (0.51-1.17) mg/dL Est Cr Clr Drug Dosing mL/min Estimated GFR (MDRD) mL/min Glucose (70-140) mg/dL Calcium (8.7-10.3) mg/dL Total Bilirubin (0.2-1.0) mg/dL AST (15-37) U/L ALT (14-63) U/L Alkaline Phosphatase (46-116) U/L Troponin I High Sens (0-51.000) pg/mL C-Reactive Protein (0.0-0.9) mg/dL B-Natriuretic Peptide (0-100) pg/mL Total Protein (6.4-8.2) g/dL Albumin (3.40-5.00) g/dL SARS CoV-2 RNA Rapid WINTER Negative (NEGATIVE) 10/16/20 10/16/20 10/17/20 Range/Units 13:58 13:58 07:40 WBC 9.78 (5.00-10.00) 10^3/uL RBC 3.54 L (3.80-5.50) 10^6/uL Hgb 8.8 L (12.0-16.0) g/dL Hct 29.8 L (37.0-47.0) % MCV 84.2 (82.0-92.0) fL MCH 24.9 L (27.0-31.0) pg MCHC 29.5 L (32.0-36.0) g/dL RDW 16.6 H (11.5-14.5) % Plt Count 558 H D (150-400) 10^3/uL MPV 8.7 (7.4-10.4) fL Immature Gran % (Auto) 0.3 (0.0-5.0) % Neut % (Auto) 72.3 H (50.0-70.0) % Lymph % (Auto) 17.2 L (20.0-40.0) % [place] % (Auto) 7.8 (2.0-8.0) % Eos % (Auto) 2.0 (1.0-3.0) % Baso % (Auto) 0.4 (0.0-1.0) % Neut # (Auto) 7.07 H (2.50-7.00) 10^3/uL Lymph # (Auto) 1.68 (1.00-4.00) 10^3/uL [place] # (Auto) 0.76 (0.10-0.80) 10^3/uL Eos # (Auto) 0.20 (0.10-0.30) 10^3/uL Baso # (Auto) 0.04 (0.00-0.10) 10^3/uL Immature Gran # (Auto) 0.03 (0.00-0.50) 10^3/uL D-Dimer, Quantitative (<400) ng/mL Sodium 136 (136-145) mmol/L Potassium 4.8 (3.5-5.1) mmol/L Chloride 98 (98-107) mmol/L Carbon Dioxide 26.0 (21.0-32.0) mmol/L Anion Gap 16.8 H (5-15) mmol/L BUN 20 H (7-18) mg/dL Creatinine 0.97 (0.51-1.17) mg/dL Est Cr Clr Drug Dosing 1.84 mL/min Estimated GFR (MDRD) 56 mL/min Glucose 121 (70-140) mg/dL Calcium 8.9 (8.7-10.3) mg/dL Total Bilirubin 0.5 (0.2-1.0) mg/dL AST 21 (15-37) U/L ALT 24 (14-63) U/L Alkaline Phosphatase 71 (46-116) U/L Troponin I High Sens 10.700 (0-51.000) pg/mL C-Reactive Protein 20.9 H (0.0-0.9) mg/dL B-Natriuretic Peptide 325 H (0-100) pg/mL Total Protein 6.9 (6.4-8.2) g/dL Albumin 1.96 L (3.40-5.00) g/dL SARS CoV-2 RNA Rapid WINTER (NEGATIVE) 10/17/20 Range/Units 07:40 WBC (5.00-10.00) 10^3/uL RBC (3.80-5.50) 10^6/uL Hgb (12.0-16.0) g/dL Hct (37.0-47.0) % MCV (82.0-92.0) fL MCH (27.0-31.0) pg MCHC (32.0-36.0) g/dL RDW (11.5-14.5) % Plt Count (150-400) 10^3/uL MPV (7.4-10.4) fL Immature Gran % (Auto) (0.0-5.0) % Neut % (Auto) (50.0-70.0) % Lymph % (Auto) (20.0-40.0) % [place] % (Auto) (2.0-8.0) % Eos % (Auto) (1.0-3.0) % Baso % (Auto) (0.0-1.0) % Neut # (Auto) (2.50-7.00) 10^3/uL Lymph # (Auto) (1.00-4.00) 10^3/uL [place] # (Auto) (0.10-0.80) 10^3/uL Eos # (Auto) (0.10-0.30) 10^3/uL Baso # (Auto) (0.00-0.10) 10^3/uL Immature Gran # (Auto) (0.00-0.50) 10^3/uL D-Dimer, Quantitative (<400) ng/mL Sodium 140 (136-145) mmol/L Potassium 4.0 (3.5-5.1) mmol/L Chloride 105 (98-107) mmol/L Carbon Dioxide 27.8 (21.0-32.0) mmol/L Anion Gap 11.2 (5-15) mmol/L BUN 16 (7-18) mg/dL Creatinine 0.78 (0.51-1.17) mg/dL Est Cr Clr Drug Dosing 49.29 mL/min Estimated GFR (MDRD) > 60 mL/min Glucose 82 (70-140) mg/dL Calcium 7.8 L (8.7-10.3) mg/dL Total Bilirubin (0.2-1.0) mg/dL AST (15-37) U/L ALT (14-63) U/L Alkaline Phosphatase (46-116) U/L Troponin I High Sens (0-51.000) pg/mL C-Reactive Protein (0.0-0.9) mg/dL B-Natriuretic Peptide (0-100) pg/mL Total Protein (6.4-8.2) g/dL Albumin (3.40-5.00) g/dL SARS CoV-2 RNA Rapid WINTER (NEGATIVE) Result Diagrams: 10/17/20 07:40 10/17/20 07:40 Sepsis Event Note - Evaluation Sepsis Screening Result: No Definite Risk - Focused Exam Vital Signs: Vital Signs Temp Pulse Resp BP Pulse Ox 10/17/20 06:32 97.6 F 73 24 H 118/65 94 L 10/17/20 03:00 98.4 F 70 18 108/53 L 95 10/16/20 22:15 98.2 F 65 18 115/51 L 96 - Problem List Review Problem List Initiated/Reviewed/Updated: Yes - Plan Plan:: History summary Ms Kohler is a 75-year-old female was admitted into OBS status from an outside [place] [facility] by Dr. Sammi romo due to persistent and ongoing symptomatic orthostatic hypotension. History taken from Dr. Sammi romo's outpatient clinical note '75yoF with a complex medical history most notable for prior pulmonary embolism on chronic anticoagulation, RA (off [facility] for the past 3mos due to surgery), and lumbar fusion on 08/14/20 who has had persistent orthostatic hypotension since surgery and in the recent days has had progressive generalized weakness along with chest pain and cough. She had recent negative COVID testing as well as treatment for pneumonia with doxycycline course without appreciable improvement. She has attempted to have fluid status optimized and started and then maximized midodrine without significant improvement of orthostatic hypotension. Gabapentin was recently reduced to maintenance man impact, but she continues to have persistent orthostatic hypotension. Recent discussions with neurosurgery has included concern for possible sympathetic chain injury as underlying or contributing etiology. Cardiology referral has previously been placed, but not yet scheduled. Fluid status today on exam with fluid depletion, unlike other recent assessments when she has been volume neutral. Primary Hospital problems --Orthostatic hypotension, asymptomatic today, however resistant to past max dose midodrine --Dehydration, improving Chronic conditions Essential hypertension, stable - medications recently stopped due to hypotension. Hiatal hernia/ with GERD, PPI, not able to tolerate p.o. sodium chloride tabs Chronic/persistent allergic asthma - Continue montelukast 10mg PO daily, zyrtec 10mg PO daily, advair BID; albuterol PRN. Pulmonary nodules History of pulmonary embolism, factor Xa inhibitor therapy chronic Rheumatoid arthritis Hepatic steatosis Thrombophilia Restless legs - continue mirapex 0.25mg daily HS S/P lumbar fusion Lumbar radiculopathy - continue gabapentin 300mg PO TID (however pt taking PRN daily Nephrolithiasis Overweight Disposition/overall plan --DC midodrine, trial fludrocortisone--given GI history, give prior to sodium chloride tabs, Ensure at least 2 hours apart. --Reinforced the use of compression stockings and abdominal binder during day (pt denotes not using binder as she thought it was for her recent back surgery) --Attempt sodium chloride tablets, dissolve in small amount of water sips slowly --Discussed with dietary regarding salty diet, pickles, chips, etc. --Daughter, Mitchel, will be on rounds on day of discharge--tomorrow
[2020-10-17] MEDS ORDERED: Sodium Chloride 1 GM Tab PO ONE (10:20)
[2020-10-17] MEDS ORDERED: Sodium Chloride 0.9% 10 ML Syringe FLUSH PRN (13:51)
[2020-10-17] MEDS ORDERED: Loperamide 2 MG Cap PO PRN (13:52)
[2020-10-17] MEDS: Pramipexole 0.125 MG Tab PO SCH (21:41)
[2020-10-17] MEDS: Docusate Sodium 100 MG Cap PO SCH (21:41)
[2020-10-17] MEDS: Fluticasone Propionate Nasal Spray 16 GM Bottle ** OWN MED NAS SCH (21:41)
[2020-10-17] MEDS: Melatonin 3 MG Tab PO SCH (21:41)
[2020-10-17] MEDS: Montelukast 10 MG Tab ** OWN MED PO SCH (21:43)
[2020-10-17] MEDS ORDERED: Metoprolol Tartrate 5 MG/5 ML SDV IVPUSH ONE ×3 (22:24→23:56)
[2020-10-18] MEDS ORDERED: Diltiazem 25 MG/5 ML SDV IVPUSH ONE (00:54)
[2020-10-18 02:27] LABS: ANION GAP 12.6 mmol/L (5-15); CHLORIDE,CL 105 mmol/L (98-107); SODIUM,NA 141 mmol/L (136-145)
[2020-10-18] MEDS ORDERED: Magnesium Sulfate/Water 2 GM in Premix Bag 1 BAG IV ONE (02:45)
[2020-10-18] MEDS ORDERED: Potassium Chloride 20 MEQ Tab.ER PO ONE (03:01)
[2020-10-18] MEDS: Sodium Chloride 0.9% 100 ML IV SCH (03:13)
[2020-10-18] MEDS: Omeprazole 20 MG Cap.CR PO SCH (07:26)
[2020-10-18] MEDS: FOLIC ACID 1 MG PO SCH (09:56)
[2020-10-18] MEDS: CETIRIZINE 10 MG PO SCH (09:56)
[2020-10-18] MEDS: Multivitamins with Minerals/Iron/Folic Acid/Lycopene Tab PO SCH (09:56)
[2020-10-18] MEDS: RIVAROXABAN 20 MG PO SCH (09:56)
[2020-10-18] MEDS: DULOXETINE 60 MG PO SCH (09:56)
[2020-10-18] MEDS: SALMETEROL INH SCH (09:57)
[2020-10-18] MEDS: FLUTICASONE PROPION INH SCH (09:57)
--- NOTE | 2020-10-18 13:32 | PCM.DCSUM1 ---
Discharge Summary - Hospital Course Diagnosis: Stroke: No - Discharge Data Discharge Date: 10/18/20 Discharge Disposition: Home, Self-Care 01 Condition: Fair - Referral to Home Health Primary Care Physician: Isabella Sanchez MD - Patient Summary/Data Consults: Consultations 10/17/20 13:38 PT Evaluation and Treatment [CONS] Routine - Patient Instructions Diet: Usual Diet as Tolerated, Drink 8-10+ Glasses/Day Diet, Other: high sodium diet Activity: No Strenuous Activities Driving: Do Not Drive Other/Special Instructions: Your were started on a NEW med while in hospital called Fludrocortisone, take it with food. Report any chest palpatations or lightheadedness since you had some Atrial Fibrillation. Wear your belly binder and stockings on your legs. Increase salt in diet. Dr Sammi Romo will be seeing you in follow up as scheduled. - Discharge Plan *PRESCRIPTION DRUG MONITORING PROGRAM REVIEWED*: Not Applicable *COPY OF PRESCRIPTION DRUG MONITORING REPORT IN PATIENT CYRUS: Not Applicable Prescriptions/Med Rec: Fludrocortisone [Florinef] 0.1 mg PO DAILY #30 tab Home Medications: Home Meds Albuterol [Proventil HFA] 2 puff INH Q4H PRN 01/16/18 [History] Cetirizine [ZyrTEC] 10 mg PO DAILY 01/16/18 [History] Montelukast [Singulair] 10 mg PO DAILY 01/16/18 [History] Nystatin [Nystatin Ointment] 1 applic TOP BID PRN 01/16/18 [History] Omeprazole 20 mg PO BIDAC 01/16/18 [History] Fluticasone Propionate [Flonase] 1 spray NS BEDTIME 08/27/18 [History] Acyclovir [Zovirax] 800 mg PO TID PRN 10/21/19 [History] Alum Hydroxide/Mag Carbonate [Gaviscon] 15 ml PO DAILY PRN 10/21/19 [History] Cyclobenzaprine [Flexeril] 5 mg PO DAILY PRN 10/21/19 [History] Rivaroxaban [Xarelto] 20 mg PO DAILY 10/21/19 [History] DULoxetine HCl [Cymbalta] 60 mg PO DAILY 05/24/20 [History] Pramipexole [Mirapex] 0.25 mg PO BEDTIME 05/24/20 [History] Acetaminophen [Tylenol] 650 mg PO DAILY PRN 09/11/20 [History] Acetaminophen/Diphenhydramine [Tylenol Pm Ex-Strength Caplet] 2 tab PO BEDTIME PRN 09/11/20 [History] Docusate Sodium 100 mg PO BEDTIME 09/11/20 [History] Hydrocodone/Acetaminophen [HYDROcodone-Acetaminophen 5-325 MG] 1 tab PO Q6H PRN 09/11/20 [History] oxyCODONE 5 mg PO Q6H PRN 09/11/20 [History] Albuterol/Ipratropium [DuoNeb 3.0-0.5 MG/3 ML] 3 ml INH Q6HR 10/16/20 [History] Fluticasone Propion/Salmeterol [Advair 250-50 Diskus] 1 inh INH BID 10/16/20 [History] Folic Acid 2 mg PO DAILY 10/16/20 [History] Gabapentin [Neurontin] 100 mg PO BEDTIME PRN 10/16/20 [History] Melatonin 5 mg PO DAILY 10/16/20 [History] Multivitamin 1 tab PO DAILY 10/16/20 [History] Fludrocortisone [Florinef] 0.1 mg PO DAILY #30 tab 10/18/20 [Rx] Referrals: Isabella Sanchez MD [Primary Care Provider] - 10/20/20 2:30 pm (This friday if all possible. ) - Discharge Summary/Plan Comment DC Time >30 min.: Yes Total # of Minutes for Discharge Time: 60 min Discharge Summary/Plan Comment: Final dx. --A fib, resolved, proximal Ismail --Orthostatic hypotension --Dehydration, resolved Chronic conditions Essential hypertension, stable - medications recently stopped due to hypotension. Hiatal hernia/ with GERD, PPI, not able to tolerate p.o. sodium chloride tabs Chronic/persistent allergic asthma - Continue montelukast 10mg PO daily, zyrtec 10mg PO daily, advair BID; albuterol PRN. Pulmonary nodules History of pulmonary embolism, factor Xa inhibitor therapy chronic Rheumatoid arthritis Hepatic steatosis Thrombophilia Restless legs - continue mirapex 0.25mg daily HS S/P lumbar fusion Lumbar radiculopathy - continue gabapentin 300mg PO TID (however pt taking PRN daily Nephrolithiasis Overweight History summary Ms Kohler is a 75-year-old female was admitted into OBS status from an outside [facility] by Dr. Sammi romo due to persistent and ongoing symptomatic orthostatic hypotension. History taken from Dr. Sammi romo's outpatient clinical note '75yoF with a complex medical history most notable for prior pulmonary embolism on chronic anticoagulation, RA (off DMARD for the past 3mos due to surgery), and lumbar fusion on 08/14/20 who has had persistent orthostatic hypotension since surgery and in the recent days has had progressive generalized weakness along with chest pain and cough. She had recent negative COVID testing as well as treatment for pneumonia with doxycycline course without appreciable improvement. She has attempted to have fluid status optimized and started and then maximized midodrine without significant improvement of orthostatic hypotension. Gabapentin was recently reduced to flap maker impact, but she continues to have persistent orthostatic hypotension. Recent discussions with neurosurgery has included concern for possible sympathetic chain injury as underlying or contributing etiology. Cardiology referral has previously been placed, but not yet scheduled. Fluid status today on exam with fluid depletion, unlike other recent assessments when she has been volume neutral. Hospital course --Patient had ongoing orthostatic hypotension at times symptomatic at times asymptomatic. Did not appear the new medication of fludrocortisone of her much improvement however her hospital stay was quite terse. She was not able to tolerate sodium chloride tabs even after crushing. Reinforced the use of compression stockings and abdominal binder during day (pt denotes not using binder as she thought it was for her recent back surgery). Was given IV fluids, Medication changes/adjustments upon discharge --Fludrocortisone, take it with food Discharge instructions --Report any chest palpatations or lightheadedness since you had some Atrial Fibrillation -Wear your belly binder and stockings on your legs --Increase salt in diet --Dr Sammi Romo will be seeing you in follow up as scheduled. - General Info Functional Status: Reports: Pain Controlled - Review of Systems General: Reports: No Symptoms HEENT: Reports: No Symptoms Pulmonary: Denies: Shortness of Breath, Pleuritic Chest Pain, Wheezing Cardiovascular: Denies: Chest Pain, Edema, Lightheadedness Gastrointestinal: Reports: No Symptoms Genitourinary: Reports: No Symptoms Musculoskeletal: Reports: No Symptoms Skin: Reports: No Symptoms Neurological: Reports: Pre-Existing Deficit Psychiatric: Reports: No Symptoms - Patient Data Vitals - Most Recent: Last Vital Signs Temp 97.6 F 10/18/20 11:00 Pulse 82 10/18/20 11:00 Resp 20 10/18/20 11:00 BP 139/72 10/18/20 11:00 Pulse Ox 97 10/18/20 11:00 Orthostatic Blood Pressure [ 95/59 Standing] Orthostatic Blood Pressure [ 119/65 Sitting] Orthostatic Blood Pressure [ 125/71 Supine] Weight - Most Recent: 128 lb I&O - Last 24 hours: Intake & Output 10/17/20 10/18/20 10/18/20 22:59 06:59 14:59 Intake Total 420 285 Balance 420 285 Lab Results - Last 24 hrs: Laboratory Results - last 24 hr 10/18/20 10/18/20 10/18/20 Range/Units 01:45 01:45 07:30 WBC 9.71 (5.00-10.00) 10^3/uL RBC 3.55 L (3.80-5.50) 10^6/uL Hgb 8.9 L (12.0-16.0) g/dL Hct 29.7 L (37.0-47.0) % MCV 83.7 (82.0-92.0) fL MCH 25.1 L (27.0-31.0) pg MCHC 30.0 L (32.0-36.0) g/dL RDW 16.5 H (11.5-14.5) % Plt Count 577 H (150-400) 10^3/uL MPV 8.8 (7.4-10.4) fL Immature Gran % (Auto) 0.2 (0.0-5.0) % Neut % (Auto) 72.1 H (50.0-70.0) % Lymph % (Auto) 16.2 L (20.0-40.0) % [place] % (Auto) 7.7 (2.0-8.0) % Eos % (Auto) 3.6 H (1.0-3.0) % Baso % (Auto) 0.2 (0.0-1.0) % Neut # (Auto) 7.00 (2.50-7.00) 10^3/uL Lymph # (Auto) 1.57 (1.00-4.00) 10^3/uL [place] # (Auto) 0.75 (0.10-0.80) 10^3/uL Eos # (Auto) 0.35 H (0.10-0.30) 10^3/uL Baso # (Auto) 0.02 (0.00-0.10) 10^3/uL Immature Gran # (Auto) 0.02 (0.00-0.50) 10^3/uL Sodium 141 (136-145) mmol/L Potassium 3.4 L (3.5-5.1) mmol/L Chloride 105 (98-107) mmol/L Carbon Dioxide 26.8 (21.0-32.0) mmol/L Anion Gap 12.6 (5-15) mmol/L BUN 12 (7-18) mg/dL Creatinine 0.67 (0.51-1.17) mg/dL Est Cr Clr Drug Dosing 57.38 mL/min Estimated GFR (MDRD) > 60 mL/min Glucose 93 (70-140) mg/dL Calcium 7.9 L (8.7-10.3) mg/dL Magnesium 1.4 L 2.2 (1.8-2.4) mg/dL Troponin I High Sens 29.700 (0-51.000) pg/mL TSH, Ultra Sensitive 0.944 (0.340-4.820) uIU/mL Med Orders - Current: Current Medications Acetaminophen (Acetaminophen 325 Mg Tab) 650 mg PO DAILY PRN PRN Reason: Pain Acetaminophen (Acetaminophen 500 Mg Tab) 1,000 mg PO BEDTIME PRN PRN Reason: Insomnia Last Admin: 10/16/20 21:09 Dose: 1,000 mg Documented by: Albuterol (Albuterol 8 Gm Inhaler Own Med ) 0 gm INH Q4H PRN PRN Reason: Wheezing Albuterol/Ipratropium (Albuterol/Ipratropium 3.0-0.5 Mg/3 Ml Neb Soln) 3 ml INH Q6HR PRN PRN Reason: Wheezing Cetirizine HCl (Cetirizine 10 Mg Tab Own Med ) 10 mg PO DAILY MONIK Last Admin: 10/18/20 09:56 Dose: 10 mg Documented by: Cyclobenzaprine HCl (Cyclobenzaprine 5 Mg Tab) 5 mg PO DAILY PRN PRN Reason: Muscle Spasm - Painful Diphenhydramine HCl (Diphenhydramine 25 Mg Cap) 50 mg PO BEDTIME PRN PRN Reason: INSOMNIA Docusate Sodium (Docusate Sodium 100 Mg Cap) 100 mg PO BEDTIME [facility] Last Admin: 10/17/20 21:41 Dose: Not Given Documented by: Fluticasone Propionate (Fluticasone Propionate Nasal [place] 16 Gm Bottle Own Med ) 0 gm JOHN BEDTIME [facility] Last Admin: 10/17/20 21:41 Dose: 1 puff Documented by: Folic Acid (Folic Acid 1 Mg Tab Own Med ) 2 mg PO DAILY [facility] Last Admin: 10/18/20 09:56 Dose: 2 mg Documented by: Gabapentin (Gabapentin 100 Mg Cap #Own Med#) 100 mg PO BEDTIME PRN PRN Reason: Pain Sodium Chloride (Normal Saline) 100 mls @ 200 mls/hr IV ASDIRECTED [facility] Last Admin: 10/18/20 03:13 Dose: 200 mls/hr Documented by: Loperamide HCl (Loperamide 2 Mg Cap) 2 mg PO ASDIRECTED PRN PRN Reason: Diarrhea Melatonin (Melatonin 3 Mg Tab) 3 mg PO BEDTIME [facility] Last Admin: 10/17/20 21:41 Dose: 3 mg Documented by: Montelukast Sodium (Montelukast 10 Mg Tab Own Med ) 10 mg PO BEDTIME [facility] Last Admin: 10/17/20 21:43 Dose: 10 mg Documented by: Multivitamins/Minerals (Multivitamins With Minerals/Iron/Folic Acid/Lycopene Tab) 1 tab PO DAILY [facility] Last Admin: 10/18/20 09:56 Dose: 1 tab Documented by: Rivaroxaban 20 Mg (Tab Own Med ) 20 each PO DAILY [facility] Last Admin: 10/18/20 09:56 Dose: 20 each Documented by: Fluticasone Propion/Salmeterol 250/50 Diskus Own Med 1 inh INH BID [facility] Last Admin: 10/18/20 09:57 Dose: 1 inh Documented by: Duloxetine 60mg Capsules Own Med 1 each PO DAILY [facility] Last Admin: 10/18/20 09:56 Dose: 1 each Documented by: Nystatin (Nystatin Ointment 15 Gm Tube) 0 gm TOP BID PRN PRN Reason: yeast Omeprazole ([facility] 20 Mg Cap.Cr) [facility] Last Admin: 10/18/20 07:26 Dose: 20 mg Documented by: Oxycodone HCl (Oxycodone 5 Mg Tab) 5 mg PO Q6H PRN PRN Reason: Pain (severe 7-10) Pramipexole Dihydrochloride (Pramipexole 0.125 Mg Tab) 0.25 mg PO BEDTIME [facility] Last Admin: 10/17/20 21:41 Dose: 0.25 mg Documented by: Sodium Chloride (Sodium Chloride 0.9% 10 Ml Syringe) 10 ml FLUSH Q8HR PRN PRN Reason: keep vein open Discontinued Medications Diltiazem HCl (Diltiazem 25 Mg/5 Ml Sdv) 15 mg 0.25 mg/kg (15 mg) IVPUSH NOW ONE Stop: 10/18/20 00:55 Last Admin: 10/18/20 01:10 Dose: 15 mg Documented by: Fludrocortisone Acetate (Fludrocortisone 0.1 Mg Tab) 0.1 mg PO ONETIME ONE Stop: 10/17/20 10:10 Last Admin: 10/17/20 11:04 Dose: 0.1 mg Documented by: Gabapentin (Gabapentin 100 Mg Cap) 100 mg PO BID [facility] Gabapentin (Gabapentin 100 Mg Cap Own Med ) 100 mg PO BID [facility] Gabapentin (Gabapentin 100 Mg Cap) 100 mg PO BEDTIME PRN PRN Reason: Pain Sodium Chloride (Normal Saline) 1,000 mls @ 125 mls/hr IV ASDIRECTED [facility] Last Admin: 10/17/20 01:05 Dose: 125 mls/hr Documented by: Levofloxacin/Dextrose 250 mg/ (Premix) 50 mls @ 50 mls/hr IV ONETIME ONE Stop: 10/16/20 22:01 Last Admin: 10/16/20 22:34 Dose: 50 mls/hr Documented by: Levofloxacin/Dextrose 500 mg/ (Premix) 100 mls @ 100 mls/hr IV ONETIME ONE Stop: 10/16/20 21:59 Last Admin: 10/16/20 21:31 Dose: 100 mls/hr Documented by: Magnesium Sulfate 2 gm/ Premix 50 mls @ 25 mls/hr IV ONETIME ONE Stop: 10/18/20 04:44 Last Admin: 10/18/20 03:11 Dose: 25 mls/hr Documented by: Iopamidol (Iopamidol 755 Mg/Ml 75 Ml Bottle) 75 ml IVPUSH ONETIME ONE Stop: 10/16/20 17:34 Last Admin: 10/16/20 18:17 Dose: 75 ml Documented by: Metoprolol Tartrate (Metoprolol Tartrate 5 Mg/5 Ml Sdv) 5 mg IVPUSH ONETIME ONE Stop: 10/17/20 22:25 Last Admin: 10/17/20 22:43 Dose: 5 mg Documented by: Metoprolol Tartrate (Metoprolol Tartrate 5 Mg/5 Ml Sdv) 5 mg IVPUSH ONETIME ONE Stop: 10/17/20 23:13 Last Admin: 10/17/20 23:28 Dose: 5 mg Documented by: Metoprolol Tartrate (Metoprolol Tartrate 5 Mg/5 Ml Sdv) 5 mg IVPUSH ONETIME ONE Stop: 10/17/20 23:57 Last Admin: 10/18/20 00:15 Dose: 5 mg Documented by: Potassium Chloride (Potassium Chloride 20 Meq Tab.Er) 40 meq PO ONETIME ONE Stop: 10/18/20 03:02 Last Admin: 10/18/20 03:14 Dose: 40 meq Documented by: Pramipexole Dihydrochloride (Pramipexole 0.5 Mg Tab) 0.25 mg PO BEDTIME MONIK Sodium Chloride (Sodium Chloride 1 Gm Tab) 1 gm PO ONETIME ONE Stop: 10/17/20 10:21 Last Admin: 10/17/20 13:17 Dose: 1 gm Documented by: - Exam Quality Assessment: Denies: Supplemental Oxygen General: Reports: Alert, Oriented, Cooperative, No Acute Distress Neck: Reports: Supple Lungs: Reports: Normal Respiratory Effort, Crackles, Other (fibrotic crackles left mid post lung lópez. ) Cardiovascular: Reports: Regular Rate, Regular Rhythm GI/Abdominal Exam: Soft Back Exam: Denies: CVA Tenderness (L), CVA Tenderness (R) Extremities: Normal Capillary Refill Skin: Reports: Warm, Dry, Intact Psy/Mental Status: Reports: Alert, Normal Affect, Normal Mood
== END 2020-10-18 15:20 | disposition home or self-care (01) ==
LOC: KA.MS 12:54 → UNDOADMOB 12:57
PROVIDERS: ADMIT Family Medicine; ATTEND Family Medicine
DX: I95.1 Orthostatic hypotension (principal); I48.91 Unspecified atrial fibrillation; E86.0 Dehydration; J45.30 Mild persistent asthma, uncomplicated; M06.9 Rheumatoid arthritis, unspecified; I10 Essential (primary) hypertension; K44.9 Diaphragmatic hernia without obstruction or gangrene; K21.9 Gastro-esophageal reflux disease without esophagitis; K76.0 Fatty (change of) liver, not elsewhere classified; R91.8 Other nonspecific abnormal finding of lung field; D68.59 Other primary thrombophilia; G25.81 Restless legs syndrome; M54.16 Radiculopathy, lumbar region; E66.3 Overweight; Z20.822 Contact with and (suspected) exposure to COVID-19; Z88.8 Allergy status to other drugs, medicaments and biological substances; Z79.01 Long term (current) use of anticoagulants; Z79.82 Long term (current) use of aspirin; Z79.899 Other long term (current) drug therapy; Z86.711 Personal history of pulmonary embolism; Z98.890 Other specified postprocedural states; Z68.23 Body mass index [BMI] 23.0-23.9, adult
CPT/HCPCS: 36415; 71046; 71275; 80048; 80053; 83735; 83880; 84443; 84484; 85025; 85379; 86140; 87070; 87186; 87205; 93005; 96365; 96366; 96367; 96375; 96376; A9270-GY; G0378; J1956; J3475; J3490; J7030; Q9967; U0002

== ENCOUNTER 2022-03-26 17:55 | Emergency (ER) | payer MEDICARE, OTHER ==
[2022-03-26] MEDS: Acetaminophen/HYDROcodone 325-5 MG Tab PO ONE ×2 (18:57→19:55)
[2022-03-26 20:35] VITALS: BP 140/76; PULSE 78
== END 2022-03-26 20:00 | disposition home or self-care (01) ==
LOC: KA.ED 17:55
DX: S32.511A Fracture of superior rim of right pubis, initial encounter for closed fracture (principal); S51.011A Laceration without foreign body of right elbow, initial encounter; E78.00 Pure hypercholesterolemia, unspecified; I10 Essential (primary) hypertension; K21.9 Gastro-esophageal reflux disease without esophagitis; Z88.8 Allergy status to other drugs, medicaments and biological substances; Z79.01 Long term (current) use of anticoagulants; Z79.899 Other long term (current) drug therapy; X50.1XXA Overexertion from prolonged static or awkward postures, initial encounter
CPT/HCPCS: 99283; 99284; A9270-GY

== ENCOUNTER 2022-12-20 17:27 | Inpatient (IN) | payer MEDICARE, OTHER ==
[2022-12-20] MEDS ORDERED: oxyCODONE 5 MG Tab PO PRN ×2 (17:42→18:16)
[2022-12-20] MEDS ORDERED: Ondansetron 4 MG/2 ML SDV IV PRN (17:42)
[2022-12-20] MEDS ORDERED: Sodium Chloride 0.9% 10 ML Syringe FLUSH PRN (17:42)
[2022-12-20] MEDS ORDERED: Docusate Sodium 100 MG Cap PO PRN (17:42)
[2022-12-20] MEDS ORDERED: Albuterol 0.083% 2.5 MG/3 ML Neb Soln NEB PRN (17:42)
[2022-12-20] MEDS ORDERED: Morphine 2 MG/ML SYRINGE IVPUSH PRN (17:42)
[2022-12-20] MEDS ORDERED: Polyethylene Glycol 3350 Powder 17 GM Packet PO PRN (17:42)
[2022-12-20] MEDS ORDERED: Azithromycin 500 MG in Sodium Chloride 0.9% 250 ML IV ONE (17:55)
[2022-12-20] MEDS ORDERED: Nystatin Ointment 15 GM Tube TOP PRN (18:16)
[2022-12-20] MEDS ORDERED: Albuterol 8 GM Inhaler INH PRN (18:16)
[2022-12-20] MEDS ORDERED: Cyclobenzaprine 10 MG Tab PO PRN (18:16)
[2022-12-20] MEDS: cefTRIAXone 2 GM Vial IVPUSH SCH (18:48)
[2022-12-20] MEDS: Sodium Chloride 0.9% 1,000 ML IV SCH (18:49)
[2022-12-20 19:55] LABS: BASOPHILS ABSOLUTE AUTO 0.04 10^3/uL (0.00-0.10); BASOPHILS PERCENT AUTO 0.3 % (0.0-1.0); EOSINOPHILS ABSOLUTE AUTO 0.16 10^3/uL (0.10-0.30); HEMATOCRIT 42.4 % (37.0-47.0); HEMOGLOBIN 13.4 g/dL (12.0-16.0); IMMATURE GRAN ABSOLUTE AUTO 0.04 10^3/uL (0.00-0.50); IMMATURE GRAN PERCENT AUTO 0.3 % (0.0-5.0); LYMPHOCYTES ABSOLUTE AUTO 1.96 10^3/uL (1.00-4.00); LYMPHOCYTES PERCENT AUTO 12.7 % (20.0-40.0); MEAN CORPUSCULAR HEMOGLOBIN 32.1 pg (27.0-31.0); MEAN CORPUSCULAR HGB CONC 31.6 g/dL (32.0-36.0); MEAN CORPUSCULAR VOLUME 101.4 fL (82.0-92.0); MEAN PLATELET VOLUME 9.2 fL (7.4-10.4); MONOCYTES ABSOLUTE AUTO 1.61 10^3/uL (0.10-0.80); MONOCYTES PERCENT AUTO 10.4 % (2.0-8.0); NEUTROPHILS ABSOLUTE AUTO 11.64 10^3/uL (2.50-7.00); NEUTROPHILS PERCENT AUTO 75.3 % (50.0-70.0); PLATELET COUNT,PLT 451 10^3/uL (150-400); RED BLOOD CELL COUNT 4.18 10^6/uL (3.80-5.50); RED CELL DISTRIBUTION WIDTH 14.5 % (11.5-14.5); WHITE BLOOD CELL COUNT,WBC 15.45 10^3/uL (5.00-10.00)
[2022-12-20 20:12] LABS: APPEARANCE,URINE SLIGHTLY CLOUDY (CLEAR); BILIRUBIN,URINE SMALL (NEGATIVE); COLOR,URINE DARK YELLOW (YELLOW); GLUCOSE,URINE NEGATIVE (NEGATIVE); KETONES,URINE TRACE mg/dL (NEGATIVE); NITRITE,URINE POSITIVE (NEGATIVE); OCCULT BLOOD,URINE LARGE (NEGATIVE); PH,URINE 5.5 (5.0-9.0); PROTEIN,URINE 100 mg/dL (NEGATIVE)
[2022-12-20 20:16] LABS: ALBUMIN 2.53 g/dL (3.40-5.00); ANION GAP 16.5 mmol/L (5-15); BILIRUBIN TOTAL 0.6 mg/dL (0.2-1.0); CALCIUM 8.4 mg/dL (8.7-10.3); CARBON DIOXIDE,CO2 25.6 mmol/L (21.0-32.0); CREATININE 1.2 mg/dL (0.51-1.17); MAGNESIUM 1.7 mg/dL (1.8-2.4); POTASSIUM,K 4.1 mmol/L (3.5-5.1); PROTEIN TOTAL,TP 6.6 g/dL (6.4-8.2)
[2022-12-20 20:18] LABS: C-REACTIVE PROTEIN 24.1 mg/dL (0.0-0.9)
[2022-12-20 20:25] LABS: BACTERIA,URINE FEW /HPF (NONE TO FEW); EPITHELIAL CELLS,URINE RARE /LPF; LEUKOCYTE ESTERASE,URINE MODERATE (NEGATIVE); WBC,URINE >100 /HPF (0-5)
[2022-12-20] MEDS: Pramipexole 0.5 MG Tab PO SCH (20:42)
[2022-12-20] MEDS: Fluticasone NASAL Spray 16 GM Bottle NASBOTH SCH (20:42)
[2022-12-20] MEDS: Gabapentin 300 MG Cap PO SCH (20:42)
[2022-12-20] MEDS: Mupirocin Oint 22 GM Tube TOP SCH (20:43)
[2022-12-20] MEDS: Formoterol/Mometasone 200-5 MCG 8.8 GM Inhaler IH SCH (20:43)
[2022-12-20] MEDS ORDERED: Magnesium Sulfate/Water 2 GM in Premix Bag 1 BAG IV ONE (20:50)
[2022-12-20] MEDS: AZELASTINE NASBOTH SCH (21:16)
[2022-12-21] MEDS: Sodium Chloride 0.9% 1,000 ML IV SCH ×2 (05:23→13:32)
[2022-12-21] MEDS: Omeprazole 20 MG Cap.CR PO SCH ×2 (07:26→17:34)
[2022-12-21] MEDS: Docusate Sodium 100 MG Cap PO SCH (08:43)
[2022-12-21] MEDS: Montelukast 10 MG Tab PO SCH (08:43)
[2022-12-21] MEDS: DULoxetine 30 MG Cap PO SCH (08:43)
[2022-12-21] MEDS: Gabapentin 300 MG Cap PO SCH ×3 (08:43→20:19)
[2022-12-21] MEDS: Rivaroxaban 10 MG Tab PO SCH (08:43)
[2022-12-21 08:44] LABS: BASOPHILS ABSOLUTE AUTO 0.02 10^3/uL (0.00-0.10); BASOPHILS PERCENT AUTO 0.1 % (0.0-1.0); EOSINOPHILS ABSOLUTE AUTO 0.11 10^3/uL (0.10-0.30); EOSINOPHILS PERCENT AUTO 0.8 % (1.0-3.0); HEMATOCRIT 34.9 % (37.0-47.0); HEMOGLOBIN 11.2 g/dL (12.0-16.0); IMMATURE GRAN ABSOLUTE AUTO 0.05 10^3/uL (0.00-0.50); IMMATURE GRAN PERCENT AUTO 0.4 % (0.0-5.0); LYMPHOCYTES ABSOLUTE AUTO 1.28 10^3/uL (1.00-4.00); LYMPHOCYTES PERCENT AUTO 9.4 % (20.0-40.0); MEAN CORPUSCULAR HEMOGLOBIN 31.9 pg (27.0-31.0); MEAN CORPUSCULAR HGB CONC 32.1 g/dL (32.0-36.0); MEAN CORPUSCULAR VOLUME 99.4 fL (82.0-92.0); MEAN PLATELET VOLUME 9.3 fL (7.4-10.4); MONOCYTES ABSOLUTE AUTO 1.44 10^3/uL (0.10-0.80); MONOCYTES PERCENT AUTO 10.6 % (2.0-8.0); NEUTROPHILS ABSOLUTE AUTO 10.67 10^3/uL (2.50-7.00); NEUTROPHILS PERCENT AUTO 78.7 % (50.0-70.0); PLATELET COUNT,PLT 422 10^3/uL (150-400); RED BLOOD CELL COUNT 3.51 10^6/uL (3.80-5.50); RED CELL DISTRIBUTION WIDTH 14.5 % (11.5-14.5); WHITE BLOOD CELL COUNT,WBC 13.57 10^3/uL (5.00-10.00)
[2022-12-21] MEDS: Cetirizine 10 MG Tab PO SCH (08:44)
[2022-12-21] MEDS: AZELASTINE NASBOTH SCH ×2 (08:45→20:18)
[2022-12-21] MEDS: Formoterol/Mometasone 200-5 MCG 8.8 GM Inhaler IH SCH ×2 (08:45→20:18)
[2022-12-21] MEDS: Mupirocin Oint 22 GM Tube TOP SCH ×4 (08:46→20:18)
[2022-12-21] MEDS: Fluticasone NASAL Spray 16 GM Bottle NASBOTH SCH ×2 (08:50→20:18)
[2022-12-21] MEDS: Folic Acid 1 MG Tab PO SCH (09:04)
[2022-12-21] MEDS: cefTRIAXone 2 GM Vial IVPUSH SCH (17:34)
[2022-12-21] MEDS ORDERED: Azithromycin 250 MG in Sodium Chloride 0.9% 250 ML IV SCH (18:00)
[2022-12-21] MEDS: Acetaminophen 325 MG Tab PO PRN (19:22)
[2022-12-21] MEDS: Loperamide 2 MG Cap PO PRN (20:19)
[2022-12-21] MEDS: Pramipexole 0.5 MG Tab PO SCH (20:19)
[2022-12-22] MEDS: Acetaminophen 325 MG Tab PO PRN (02:36)
[2022-12-22] MEDS: Loperamide 2 MG Cap PO PRN (02:37)
[2022-12-22] MEDS: Omeprazole 20 MG Cap.CR PO SCH (06:29)
[2022-12-22 07:20] LABS: BASOPHILS ABSOLUTE AUTO 0.06 10^3/uL (0.00-0.10); BASOPHILS PERCENT AUTO 0.7 % (0.0-1.0); EOSINOPHILS ABSOLUTE AUTO 0.37 10^3/uL (0.10-0.30); EOSINOPHILS PERCENT AUTO 4.1 % (1.0-3.0); HEMATOCRIT 34.2 % (37.0-47.0); HEMOGLOBIN 10.7 g/dL (12.0-16.0); IMMATURE GRAN ABSOLUTE AUTO 0.01 10^3/uL (0.00-0.50); IMMATURE GRAN PERCENT AUTO 0.1 % (0.0-5.0); LYMPHOCYTES ABSOLUTE AUTO 1.08 10^3/uL (1.00-4.00); MEAN CORPUSCULAR HEMOGLOBIN 31.7 pg (27.0-31.0); MEAN CORPUSCULAR HGB CONC 31.3 g/dL (32.0-36.0); MEAN CORPUSCULAR VOLUME 101.2 fL (82.0-92.0); MEAN PLATELET VOLUME 9.3 fL (7.4-10.4); MONOCYTES ABSOLUTE AUTO 1.09 10^3/uL (0.10-0.80); MONOCYTES PERCENT AUTO 12.1 % (2.0-8.0); NEUTROPHILS ABSOLUTE AUTO 6.37 10^3/uL (2.50-7.00); PLATELET COUNT,PLT 403 10^3/uL (150-400); RED BLOOD CELL COUNT 3.38 10^6/uL (3.80-5.50); RED CELL DISTRIBUTION WIDTH 14.5 % (11.5-14.5); WHITE BLOOD CELL COUNT,WBC 8.98 10^3/uL (5.00-10.00)
[2022-12-22 07:35] LABS: ANION GAP 14.6 mmol/L (5-15); CARBON DIOXIDE,CO2 22.3 mmol/L (21.0-32.0); CREATININE 0.87 mg/dL (0.51-1.17); EST CRCL DRUG DOSING (CG) 40.86 mL/min; MAGNESIUM 1.8 mg/dL (1.8-2.4); POTASSIUM,K 2.9 mmol/L (3.5-5.1)
[2022-12-22] MEDS: Fluticasone NASAL Spray 16 GM Bottle NASBOTH SCH (08:00)
[2022-12-22] MEDS: Formoterol/Mometasone 200-5 MCG 8.8 GM Inhaler IH SCH (08:00)
[2022-12-22] MEDS: Mupirocin Oint 22 GM Tube TOP SCH (08:00)
[2022-12-22] MEDS: AZELASTINE NASBOTH SCH (08:00)
[2022-12-22] MEDS: Montelukast 10 MG Tab PO SCH (08:01)
[2022-12-22] MEDS: Rivaroxaban 10 MG Tab PO SCH (08:01)
[2022-12-22] MEDS: Gabapentin 300 MG Cap PO SCH (08:01)
[2022-12-22] MEDS: DULoxetine 30 MG Cap PO SCH (08:01)
[2022-12-22] MEDS: Folic Acid 1 MG Tab PO SCH (08:01)
[2022-12-22] MEDS: Docusate Sodium 100 MG Cap PO SCH ×2 (08:01→08:21)
[2022-12-22] MEDS: Cetirizine 10 MG Tab PO SCH (08:01)
[2022-12-22] MEDS ORDERED: Levofloxacin 500 MG Tab PO SCH (09:00)
[2022-12-22] MEDS ORDERED: Potassium Chloride 20 MEQ Tab.ER PO SCH (09:00)
== END 2022-12-22 10:40 | disposition home or self-care (01) | DRG 698 ==
LOC: KA.MS 17:41
PROVIDERS: ADMIT Family Medicine; ATTEND Family Medicine
DX: T83.511A Infection and inflammatory reaction due to indwelling urethral catheter, initial encounter (principal); J18.9 Pneumonia, unspecified organism; N39.0 Urinary tract infection, site not specified; N18.9 Chronic kidney disease, unspecified; G89.29 Other chronic pain; I12.9 Hypertensive chronic kidney disease with stage 1 through stage 4 chronic kidney disease, or unspecified chronic kidney disease; N18.31 Chronic kidney disease, stage 3a; D63.1 Anemia in chronic kidney disease; E86.0 Dehydration; K21.9 Gastro-esophageal reflux disease without esophagitis; M54.9 Dorsalgia, unspecified; M79.7 Fibromyalgia; M19.90 Unspecified osteoarthritis, unspecified site; M81.0 Age-related osteoporosis without current pathological fracture; M06.9 Rheumatoid arthritis, unspecified; G25.81 Restless legs syndrome; Z96.659 Presence of unspecified artificial knee joint; E78.00 Pure hypercholesterolemia, unspecified; Z88.8 Allergy status to other drugs, medicaments and biological substances; Z79.52 Long term (current) use of systemic steroids; Z86.711 Personal history of pulmonary embolism; Z79.01 Long term (current) use of anticoagulants; Z87.442 Personal history of urinary calculi; Z79.1 Long term (current) use of non-steroidal anti-inflammatories (NSAID); Z90.722 Acquired absence of ovaries, bilateral; Z79.899 Other long term (current) drug therapy; Z86.718 Personal history of other venous thrombosis and embolism; Z87.19 Personal history of other diseases of the digestive system; Z86.16 Personal history of COVID-19; Z98.42 Cataract extraction status, left eye; Z98.41 Cataract extraction status, right eye; Z90.710 Acquired absence of both cervix and uterus; Z90.89 Acquired absence of other organs; Z98.890 Other specified postprocedural states; Z90.49 Acquired absence of other specified parts of digestive tract; Z98.51 Tubal ligation status; Y84.6 Urinary catheterization as the cause of abnormal reaction of the patient, or of later complication, without mention of misadventure at the time of the procedure; Y92.89 Other specified places as the place of occurrence of the external cause; Z98.49 Cataract extraction status, unspecified eye
CPT/HCPCS: 36415; 71045; 80048; 80053; 81001; 82550; 83605; 83735; 83880; 84484; 85025; 86140; 87040; A9270-GY; J0456; J0696; J3475; J7030; J7050; Q3014

== ENCOUNTER 2023-03-22 22:00 | Emergency (ER) | payer MEDICARE, OTHER ==
[2023-03-22] MEDS: Lidocaine 1% with EPINEPHrine 1:100,000 20 ML MDV INJECT ONE (23:00)
[2023-03-22] MEDS: Lidocaine 1% with EPINEPHrine 1:100,000 20 ML MDV ONE (23:15)
[2023-03-22] MEDS: Bacitracin/Neomycin/Polymyxin B Oint 0.9 GM U/D Packet ONE (23:21)
[2023-03-22] MEDS: Bacitracin/Neomycin/Polymyxin B Oint 0.9 GM U/D Packet TOP ONE (23:22)
[2023-03-23] MEDS: Acetaminophen/HYDROcodone 325-5 MG Tab PO ONE (00:17)
== END 2023-03-23 00:25 | disposition home or self-care (01) ==
LOC: KA.ED 22:00
DX: S01.81XA Laceration without foreign body of other part of head, initial encounter (principal); S60.211A Contusion of right wrist, initial encounter; I10 Essential (primary) hypertension; K21.9 Gastro-esophageal reflux disease without esophagitis; Z79.899 Other long term (current) drug therapy; Z88.5 Allergy status to narcotic agent; Z88.8 Allergy status to other drugs, medicaments and biological substances; Z91.048 Other nonmedicinal substance allergy status; W01.0XXA Fall on same level from slipping, tripping and stumbling without subsequent striking against object, initial encounter
CPT/HCPCS: 12013; 70450; 73110-RT; 99283; 99284; A9270-GY; J3490

== ENCOUNTER 2023-06-10 17:10 | Emergency (ER) | payer MEDICARE, OTHER ==
[2023-06-10] MEDS: Sodium Chloride 0.9% 10 ML Syringe FLUSH PRN (17:25)
[2023-06-10 17:36] VITALS: BP 156/91; PULSE 72
[2023-06-10 17:42] LABS: BASOPHILS ABSOLUTE AUTO 0.02 10^3/uL (0.00-0.10); BASOPHILS PERCENT AUTO 0.3 % (0.0-1.0); EOSINOPHILS ABSOLUTE AUTO 0.47 10^3/uL (0.10-0.30); EOSINOPHILS PERCENT AUTO 7.3 % (1.0-3.0); HEMATOCRIT 46.6 % (37.0-47.0); HEMOGLOBIN 14.9 g/dL (12.0-16.0); IMMATURE GRAN ABSOLUTE AUTO 0.02 10^3/uL (0.00-0.50); IMMATURE GRAN PERCENT AUTO 0.3 % (0.0-5.0); LYMPHOCYTES ABSOLUTE AUTO 1.42 10^3/uL (1.00-4.00); MEAN CORPUSCULAR HEMOGLOBIN 32.9 pg (27.0-31.0); MEAN CORPUSCULAR VOLUME 102.9 fL (82.0-92.0); MEAN PLATELET VOLUME 9.9 fL (7.4-10.4); MONOCYTES ABSOLUTE AUTO 0.59 10^3/uL (0.10-0.80); MONOCYTES PERCENT AUTO 9.2 % (2.0-8.0); NEUTROPHILS ABSOLUTE AUTO 3.92 10^3/uL (2.50-7.00); NEUTROPHILS PERCENT AUTO 60.9 % (50.0-70.0); PLATELET COUNT,PLT 225 10^3/uL (150-400); RED BLOOD CELL COUNT 4.53 10^6/uL (3.80-5.50); RED CELL DISTRIBUTION WIDTH 13.5 % (11.5-14.5); WHITE BLOOD CELL COUNT,WBC 6.44 10^3/uL (5.00-10.00)
[2023-06-10 18:00] LABS: ALBUMIN 3.19 g/dL (3.40-5.00); ANION GAP 11.3 mmol/L (5-15); BILIRUBIN TOTAL 0.6 mg/dL (0.2-1.0); CALCIUM 8.9 mg/dL (8.7-10.3); CARBON DIOXIDE,CO2 29.2 mmol/L (21.0-32.0); CREATININE 1.07 mg/dL (0.51-1.17); EST CRCL DRUG DOSING (CG) 32.7 mL/min; POTASSIUM,K 4.5 mmol/L (3.5-5.1); PROTEIN TOTAL,TP 6.3 g/dL (6.4-8.2)
[2023-06-10 18:10] LABS: INR 1.5 (0.9-1.1); PROTHROMBIN TIME 15.3 SEC (9.3-12.2); PTT,PARTIAL THROMBOPLSTIN TIME 27.4 SEC (23.3-34.9)
[2023-06-10 19:13] LABS: APPEARANCE,URINE CLOUDY (CLEAR); BILIRUBIN,URINE NEGATIVE (NEGATIVE); COLOR,URINE YELLOW (YELLOW); GLUCOSE,URINE NEGATIVE (NEGATIVE); KETONES,URINE NEGATIVE (NEGATIVE); LEUKOCYTE ESTERASE,URINE MODERATE (NEGATIVE); NITRITE,URINE NEGATIVE (NEGATIVE); OCCULT BLOOD,URINE LARGE (NEGATIVE); PH,URINE 6.5 (5.0-9.0); PROTEIN,URINE 30 mg/dL (NEGATIVE); UROBILINOGEN,URINE 0.2 E.U./dL (0.2-1.0)
[2023-06-10 19:14] LABS: BACTERIA,URINE FEW /HPF (NONE TO FEW); EPITHELIAL CELLS,URINE FEW /LPF
[2023-06-10 19:15] LABS: RBC,URINE 40-50 /HPF (0-5); WBC,URINE 50-75 /HPF (0-5)
== END 2023-06-10 20:03 | disposition home or self-care (01) ==
LOC: KA.ED 17:10
DX: R42 Dizziness and giddiness (principal); I12.9 Hypertensive chronic kidney disease with stage 1 through stage 4 chronic kidney disease, or unspecified chronic kidney disease; N18.30 Chronic kidney disease, stage 3 unspecified; J45.909 Unspecified asthma, uncomplicated; K21.9 Gastro-esophageal reflux disease without esophagitis; Z86.16 Personal history of COVID-19; Z90.49 Acquired absence of other specified parts of digestive tract; Z79.899 Other long term (current) drug therapy; Z79.01 Long term (current) use of anticoagulants; Z88.8 Allergy status to other drugs, medicaments and biological substances; Z88.6 Allergy status to analgesic agent; Z91.09 Other allergy status, other than to drugs and biological substances; Z87.440 Personal history of urinary (tract) infections
CPT/HCPCS: 36415; 70450; 80053; 81001; 82947; 84484; 85025; 85610; 85730; 87086; 87088; 87186; 93010; 99284; J3490

== ENCOUNTER 2024-04-20 15:06 | Emergency (ER) | payer MEDICARE, OTHER | END 2024-04-20 16:40 | disposition home or self-care (01) | LOC: KA.ED 15:06 | DX: S80.01XA Contusion of right knee, initial encounter (principal); S00.83XA Contusion of other part of head, initial encounter; I12.9 Hypertensive chronic kidney disease with stage 1 through stage 4 chronic kidney disease, or unspecified chronic kidney disease; N18.9 Chronic kidney disease, unspecified; E78.00 Pure hypercholesterolemia, unspecified; Z88.8 Allergy status to other drugs, medicaments and biological substances; Z91.048 Other nonmedicinal substance allergy status; Z79.899 Other long term (current) drug therapy; Z86.16 Personal history of COVID-19; Z90.49 Acquired absence of other specified parts of digestive tract; Z90.710 Acquired absence of both cervix and uterus; W13.3XXA Fall through floor, initial encounter; W22.8XXA Striking against or struck by other objects, initial encounter | CPT/HCPCS: 70553; 73560-RT; 99283; 99284; A9577 ==

== ENCOUNTER → 2024-07-13 | Emergency (ER) | payer MEDICARE, OTHER ==
[2024-07-13] MEDS: Orphenadrine 60 MG/2 ML Inj IM ONE (17:26)
[2024-07-13] MEDS: Acetaminophen 500 MG Tab PO ONE (17:29)
== END | disposition home or self-care (01) ==
LOC: KA.ED 17:08
DX: S76.311A Strain of muscle, fascia and tendon of the posterior muscle group at thigh level, right thigh, initial encounter (principal); I12.9 Hypertensive chronic kidney disease with stage 1 through stage 4 chronic kidney disease, or unspecified chronic kidney disease; N18.30 Chronic kidney disease, stage 3 unspecified; E78.00 Pure hypercholesterolemia, unspecified; J45.909 Unspecified asthma, uncomplicated; K21.9 Gastro-esophageal reflux disease without esophagitis; Z86.16 Personal history of COVID-19; Z90.49 Acquired absence of other specified parts of digestive tract; Z90.710 Acquired absence of both cervix and uterus; Z88.8 Allergy status to other drugs, medicaments and biological substances; Z91.048 Other nonmedicinal substance allergy status; Z79.51 Long term (current) use of inhaled steroids; Z79.01 Long term (current) use of anticoagulants; Z79.899 Other long term (current) drug therapy; X50.1XXA Overexertion from prolonged static or awkward postures, initial encounter
CPT/HCPCS: 73552; 96372; 99283; 99284; A9270; J2360